=== PATIENT | female | born 1985 | race Hispanic/Latino ===

== ENCOUNTER 2019-09-18 22:14 | Emergency (ER) | payer SELFPAY ==
[~2019-09-18] VITALS: Ht 157.5 cm; Wt 86.2 kg
--- OUTSIDE RECORDS SUMMARY | 2019-09-18 22:16 | XMS REPORT ---
Author Author Admin, Delong Organization Unknown Address Unknown Phone Unavailable PROBLEMS Condition Status Date Provider Notes Attention deficit disorder active Virgilio Perkins PAT positive active Virgilio Perkins Vaccination Against Influenza completed - Virgilio Perkins Pre-diabetes active Destinee Cano Hyperlipidemia active Destinee Cano Thrombocytosis completed - Destinee Cano Std screening active Last Patten in the family completed - Destinee Cano BMI 31.0-31.9 active Destinee Cano Obesity active Destinee Cano Folliculitis completed - Destinee Cano Hypothyroidism active Destinee Cano Goiter active Destinee Cano Well woman active Destinee Cano ENCOUNTERS Date Type Provider Location Encounter Diagnosis - Ambulatory Encounter Roxana Decker [facility] K - Ambulatory Encounter Ancelmo Beatty [facility] UNK - Ambulatory Encounter Ronda Franco [facility] UNK - Ambulatory Encounter iGsele Camacho [facility] UNK - Ambulatory Encounter Virgilio Perkins [facility] UNK - Ambulatory Encounter Virgilio Perkins [facility] UNK - Ambulatory Encounter [facility]ilio [facility] - Ambulatory Encounter Virgilio Perkins [facility] UNK - Ambulatory Encounter Virgilio Boo [facility] Attention deficit disorder - Ambulatory Encounter Virgilio Perkins LinkLogtina [facility] UNK - Ambulatory Encounter Virgilio BirdLogtina [facility] UNK - Ambulatory Encounter Madisoneyad Doug [facility] UNK - Ambulatory Encounter Virgilio Perkins [facility] UNK - Ambulatory Encounter Virgilio Velazco [facility] Vaccination Against InfluenzaANA positive - Ambulatory Encounter Last Sandor Last Sandor Adwoa [facility] UNK - Ambulatory Encounter Last Sandor Last [facility] UNK - Ambulatory Encounter Last Sandor Last Sandor [facility] UNK - Ambulatory Encounter Last Sandor Last Sandor [facility] UNK - Ambulatory Encounter Last Sandor Last Sandor [facility] UNK - Ambulatory Encounter Last Sandor Last Sandor [facility] UNK - Ambulatory Encounter Last Sandor Last Sandor [facility] UNK - Ambulatory Encounter Yoseph Llamas [facility] UNK - Ambulatory Encounter Last Sandor Last [facility]or [facility] UNK - Ambulatory Encounter Last East [facility] Std screening - Ambulatory Encounter [facility]nie [facility] UNK - Ambulatory Encounter Vonnie Perrin [facility] UNK - Ambulatory Encounter [facility] Encounter [facility] Std screeningThrombocytosis - Ambulatory Encounter Destinee Cano [facility] Vonnie [facility]err[facility] UNK - Ambulatory Encounter Dest[facility] UNK - Ambulatory Encounter Destinee [facility] UNK - Ambulatory Encounter Destinee Sarabia [facility] FolliculitisDeath in the family - Ambulatory Encounter Destinee [facility] UNK - Ambulatory Encounter Vonnie Ware [facility] Contact Center UNK - Ambulatory Encounter Fax Status [facility] UNK - Ambulatory Encounter F[facility] - [facility] Encounter Vonniewally Douglaso [facility] UNK - Ambulatory Encounter Destinee Cano [facility] UNK - Ambulatory Encounter Dest[facility] UN[facility] - [facility] Std screeningThrombocytosisHyperlipidemiaPre-diabetes - Ambulatory Encounter Destinee Jerome Cano [facility] UNK - [facility]err[facility] UNK - [facility]K - Ambulatory Encounter Destinee BirdLogic [facility] UNK - Ambulatory Encounter Destinee Cano [facility] UNK - Ambulatory Encounter Destinee Cano [facility] UNK - Ambulatory Encounter Destinee Jerome Rollinsah Jerome [facility] UNK - Ambulatory Encounter Rachele Jono [facility] GIRL FRIDAY UNK - Ambulatory Encounter Destinee Acevedo [facility] Well womanGoiterHypothyroidismFolliculitisObesityBMI 31.0-31.9Death in the family VITAL SIGNS Date Observation Value Provider oxygen saturation, oximetry 98 % [facility] " blood pressure, diastolic 80 mm[Hg] Deborath Camacho " blood pressure, systolic 121 mm[Hg] Debora Camacho " respiratory rate E&M 17 /min Debora Camacho " pulse rate E&M 52 /min Deborath Camacho " temperature E&M 97.6 [degF] Deborath Camacho " weight E&M 208.50 lbs. Deborath Camacho " weight in kilograms E&M 94.77 [facility] " method used to obtain blood pressure automatic [facility] Position 01 sitting Debaugusta Camacho " blood pressure, site #1 left arm Deborath Camacho " temperature site oral Debora Camacho " height E&M 64 [in_i] Deborath Camacho " height in centimeters E&M 162.56 cm [facility] oxygen [facility], oximetry 97 % [facility] " blood pressure, diastolic 86 mm[Hg] [facility] " blood pressure, systolic 124 mm[Hg] [facility] " respiratory rate E&M 18 /min [facility] " pulse rate E&M 73 /min [facility] " temperature E&M 98.0 [degF] [facility] " weight E&M 200 lbs. [facility] " weight in kilograms E&M 90.91 kg [facility] " method used to obtain blood pressure automatic [facility] " Blood Pressure Position 01 sitting [facility] " blood pressure, site #1 left arm [facility] " temperature site oral [facility] " height E&M 64 [in_i] [facility] " height in centimeters E&M 162.56 cm [facility] oxygen saturation, oximetry 96 % [place] " blood pressure, diastolic 78 mm[Hg] [place] " blood pressure, systolic 114 mm[Hg] [place] " pulse rate E&M 56 /min [place] " temperature E&M 98.6 [degF] [place] " weight E&M 205.80 lbs. [place] " weight in kilograms E&M 93.55 kg [place] " method used to obtain blood pressure automatic [place] " Blood Pressure Position 01 sitting [place] " blood pressure, site #1 left arm [place] " temperature site oral [place] " height E&M 64 [in_i] [place] " height in centimeters E&M 162.56 cm [place] oxygen saturation, oximetry 99 % Mckenzie Azul " pulse rate E&M 49 /min Mckenzie Azul " blood pressure, diastolic 73 mm[Hg] Mckenzie Azul " blood pressure, systolic 109 mm[Hg] Mckenzie Azul " temperature E&M 97.6 [degF] Mckenzie Azul " weight E&M 179.50 lbs. Mckenzie Azul " weight in kilograms E&M 81.59 kg Mckenzie Azul " method used to obtain blood pressure automatic Mckenzie Azul " Blood Pressure Position 01 sitting Mckenzie Azul " blood pressure, site #1 left arm Mckenzie Azul " temperature site tympanic Mckenzie Azul " height E&M 64 [in_i] Mckenzie Azul " height in centimeters E&M 162.56 cm Mckenzie Azul oxygen saturation, oximetry 98 % Kathy Sarabia " pulse rate E&M 56 /min Kathy Sarabia " blood pressure, diastolic 83 mm[Hg] Kathy Sarabia " blood pressure, systolic 139 mm[Hg] Kathy Sarabia " temperature E&M 97.5 [degF] Kathy Sarabia " height E&M 64 [in_i] Kathy Sarabia " height in centimeters E&M 162.56 cm Kathy Sarabia " weight E&M 181 lbs. Kathy Sarabia " weight in kilograms E&M 82.27 kg Kathy Sarabia " method used to obtain blood pressure automatic Mckenzie Azul " Blood Pressure Position 01 sitting Mckenzie Azul " blood pressure, site #1 left arm Mckenzie Azul " temperature site tympanic [facility]ul ALLERGIES Allergy Name Onset Date Reaction Criticality Status DENADRYL rash High Criticality active REASON FOR REFERRAL Start Date - End Date Service - Ultrasound RESULTS Date Observation Value Provider Reference Range Interpretation Location thyroid stimulating hormone, serum 151.400 u[iU]/mL [facility] 0.450-4.500 High Neisseria gonorrhoeae, throat culture Negative [facility] Negative Neisseria gonorrhoeae DNA probe Negative [facility] Negative " chlamydia DNA probe Negative [facility] Negative HIV-CMIA (Chemiluminescent Microparticle Immuno Assay) Non Reactive [facility] Non Reactive " rapid plasma reagin antibody, serum Non Reactive [facility] Non Reactive thyroid stimulating hormone, serum 100.600 u[iU]/mL [facility] 0.450-4.500 High " hemoglobin A1C, blood, as % of total hemoglobin 6.0 % [facility] 4.8-5.6 High " Neisseria gonorrhoeae DNA probe Negative [facility] Negative " chlamydia DNA probe Negative [facility] Negative " LDL cholesterol, serum 165 mg/dL [facility] 0-99 High " very low density lipoproteins 36 mg/dL [facility] 5-40 " HDL cholesterol, serum 45 mg/dL [facility] >39 " triglyceride, serum, fasting 178 mg/dL [facility] 0-149 High " cholesterol, serum 246 mg/dL [facility] 100-199 High " immature granulocytes, percentage of total cells, blood 0 % [facility] " basophil count, absolute 0.0 x10E3/uL [facility] 0.0-0.2 " Eosinophil Absolute Count 0.1 X10E3/UL [facility] 0.0-0.4 " monocyte count, blood, automated 0.7 X10E3/UL [facility] 0.1-0.9 " lymphocyte count, blood, automated 1.7 X10E3/UL [facility] 0.7-3.1 " Absolute Neutrophils 7.5 X10E3/UL [facility] 1.4-7.0 High " basophils as percent of blood leukocytes 0 % [facility] " eosinophils as percent of blood leukocytes 1 % [facility] " monocytes as percent of blood leukocytes 7 % [facility] " lymphocytes as percent of blood leukocytes 17 % [facility] " neutrophils as percent of blood leukocytes 75 % [facility] " platelet count 368 X10E3/UL [facility] 150-379 " red blood cell distribution width 14.6 % [facility] 12.3-15.4 " mean corpuscular hemoglobin concentration, RBC 33.3 G/DL [facility] 31.5-35.7 " mean corpuscular hemoglobin, RBC 28.3 pg [facility] 26.6-33.0 " mean corpuscular volume, RBC 85 fL [facility] 79-97 " hematocrit, blood 41.4 % [facility] 34.0-46.6 " hemoglobin, blood 13.8 g/dL [facility] 11.1-15.9 " erythrocyte (RBC) count 4.87 X10E6/UL [facility] 3.77-5.28 " leukocyte count, blood 10.0 X10E3/UL [facility] 3.4-10.8 hepatitis B surface antigen Negative [facility] Negative " rapid plasma reagin antibody, serum Non Reactive [facility] Non Reactive " hepatitis C antibody, serum <0.1 [facility] 0.0-0.9 " HIV-CMIA (Chemiluminescent Microparticle Immuno Assay) Non Reactive [facility] Non Reactive " rubella antibody, serum, IgG 3.90 [facility] Immune >0.99 " thyroid stimulating hormone, serum 11.580 u[iU]/mL [facility] 0.450-4.500 High " hemoglobin A1C, blood, as % of total hemoglobin 6.3 % [facility] 4.8-5.6 High " Neisseria gonorrhoeae DNA probe Negative [facility] Negative " chlamydia DNA probe Equivocal [facility] Negative " LDL cholesterol, serum 166 mg/dL [facility] 0-99 High " very low density lipoproteins 56 mg/dL [facility] 5-40 High " HDL cholesterol, serum 43 mg/dL [facility] >39 " triglyceride, serum, fasting 282 mg/dL [facility] 0-149 High " cholesterol, serum 265 mg/dL [facility] 100-199 High " alanine aminotransferase (SGPT), serum 12 1/L [facility] 0-32 " aspartate aminotransferase (SGOT), serum 17 1/L [facility] 0-40 " alkaline phosphatase, serum 64 1/L [facility] 39-117 " bilirubin, serum, total 0.5 mg/dL [facility] 0.0-1.2 " albumin/globulin ratio, serum 1.3 [facility] 1.1-2.5 " globulin, serum 3.4 [facility] 1.5-4.5 " albumin, serum 4.5 g/dL [facility] 3.5-5.5 " protein, total, serum 7.9 g/dL [facility] 6.0-8.5 " calcium, serum 9.6 mg/dL [facility] 8.7-10.2 " carbon dioxide, venous blood 23 mmol/L [facility] 18-29 " chloride, serum 99 mmol/L [facility] 97-106 " potassium, serum 4.6 mmol/L [facility] 3.5-5.2 " sodium, serum 139 mmol/L [facility] 136-144 " urea nitrogen/creatinine ratio, serum 16 [facility] 8-20 " eGFR if 141 mL/min/((173/100).m2) [facility] >59 " Estimated Glomerular Filtration Rate (calc) 122 mL/min/((173/100).m2) [facility] >59 " creatinine, serum 0.63 mg/dL [facility] 0.57-1.00 " urea nitrogen, blood 10 mg/dL [facility] 6-20 " blood glucose, random 107 mg/dL [facility] 65-99 High " immature granulocytes, percentage of total cells, blood 0 % [facility] " basophil count, absolute 0.0 x10E3/uL [facility] 0.0-0.2 " Eosinophil Absolute Count 0.1 X10E3/UL [facility] 0.0-0.4 " monocyte count, blood, automated 0.5 X10E3/UL [facility] 0.1-0.9 " lymphocyte count, blood, automated 1.3 X10E3/UL [facility] 0.7-3.1 " Absolute Neutrophils 6.7 X10E3/UL [facility] 1.4-7.0 " basophils as percent of blood leukocytes 0 % [facility] " eosinophils as percent of blood leukocytes 1 % [facility] " monocytes as percent of blood leukocytes 6 % [facility] " lymphocytes as percent of blood leukocytes 16 % [facility] " neutrophils as percent of blood leukocytes 77 % [facility] " platelet count 391 X10E3/UL [facility] 150-379 High " red blood cell distribution width 14.7 % [facility] 12.3-15.4 " mean corpuscular hemoglobin concentration, RBC 32.8 G/DL [facility] 31.5-35.7 " mean corpuscular hemoglobin, RBC 27.6 pg [facility] 26.6-33.0 " mean corpuscular volume, RBC 84 fL [facility] 79-97 " hematocrit, blood 42.4 % [facility] 34.0-46.6 " hemoglobin, blood 13.9 g/dL [facility] 11.1-15.9 " erythrocyte (RBC) count 5.04 X10E6/UL [facility] 3.77-5.28 " leukocyte count, blood 8.6 X10E3/UL [facility] 3.4-10.8 HISTORY OF IMMUNIZATIONS No Information Available HISTORY OF MEDICATION USE Medication Instructions Dates Provider Comments LEVOTHYROXINE SODIUM 112 MCG ORAL TABLET One tab by mouth daily Destinee Cano SOCIAL HISTORY Date Observation Value Provider time of call 08/22/2019 3:52 PM Mary Decker Exercise Program Referral T Gisele Camacho " Weight Management Counseling Provided Margaret Camacho " Nutrition intervention Margaret Camacho " drug use, illicit Never [facility] " alcohol use Currently [facility] " social history E&M Single. Single. 3 children. Partner in 01/2016 2 suicide. Not homeless. Employed. Sex at : Female. Gender identity: Female. Gender of partner(s): Female. Sexually Active: Yes. Not currently sexually active. [facility] " social history reviewed E&M reviewed today [facility] " is there any chance that you could be ? No [facility] " sexual orientation Heterosexual [facility] " passive cigarette smoke exposure No [facility] " smoking status never smoker [facility] " Exercise Program Referral T [facility] " Weight Management Counseling Provided T [facility] " Nutrition intervention T [facility] " drug use, illicit Never [facility] " alcohol use Currently [facility] " social history E&M Single. Single. 3 children. Partner in 01/2016 2 suicide. Not homeless. Employed. Sex at : Female. Gender identity: Female. Gender of partner(s): Female. Sexually Active: Yes. [facility] currently [facility] active. [facility] reviewed E&M reviewed today [facility] " is there any chance that you could be ? No [facility] " sexual orientation Heterosexual [facility] " passive cigarette smoke exposure No [facility] " smoking status never smoker [facility] time of call 04/17/2018 4:30 PM Gretchen Brush " sexual orientation Heterosexual [facility] [place] " is there any chance that you could be ? No [place] " passive cigarette smoke exposure No [place] " smoking status never smoker [facility] " Exercise Program Referral T [place] " Weight Management Counseling Provided T [place] " Nutrition intervention Margaret East social history E&M Single. Single. 3 children. Partner in 01/2016 22 suicide. Not homeless. Employed. Sex at : Female. Gender identity: Female. Gender of partner(s): Female. Sexually Active: Yes. Not currently sexually active. Destinee Cano " social history reviewed E&M reviewed today Destinee Cano " Exercise Program Referral T Destinee Cano " Weight Management Counseling Provided T Destinee Cano " Nutrition intervention T Destinee Cano " drug use, illicit Never Mckenzie Azul " alcohol use Currently Mckenzie Azul " is there any chance that you could be ? No Mckenzie Azul " passive cigarette smoke exposure No Mckenzie Azul " smoking status never smoker Mckenzie Azul time of call 09/01/2016 7:58 AM Rhina Ware social history E&M Single. Single. 3 children. Partner in 01/2016 2/2 suicide. Not homeless. Employed. Sex at : Female. Gender identity: Female. Gender of partner(s): Female. Sexually Active: Yes. Not currently sexually active. Destinee Cano " family support Single. 3 children. Partner in 01/2016 2/2 suicide. Destinee Cano " social history - sexual practice Not currently sexually active. Destinee Cano " social history reviewed E&M reviewed today Destinee Cano alcohol use, frequency holidays/special occasions only Kathy Sarabia " sex at Female Kathy Sarabia " patient considered to be homeless No Kathy Sarabia " Exercise Program Referral T Kathy Sarabia " Weight Management Counseling Provided T Kathy Sarabia " Nutrition intervention T Kathy Sarabia " drug use, illicit Never Mckenzie Azul " alcohol use Currently Kathy Sarabia " is there any chance that you could be ? No Mckenzie Azul " passive cigarette smoke exposure No Mckenzie Azul " smoking status never smoker Mckenzie Azul FUNCTIONAL STATUS No Information Available MENTAL STATUS Date Observation Value Provider assessment of judgment and insight E&M intact Virgilio Perkins " mental status examination: orientation E&M oriented to time, place, and person Virgilio Perkins " assessment of mood and affect E&M no depression, anxiety, or agitation Virgilio Perkins " Generalized Anxiety Disorder Questionnaire - Question 2 0 Madison Doug " Generalized Anxiety Disorder Questionnaire - Question 1 0 Gisele Camacho assessment of judgment and insight E&M intact Virgilio Perkins " mental status examination: orientation E&M oriented to time, place, and person Virgilio Perkins " assessment of mood and affect E&M no depression, anxiety, or agitation Virgilio Perkins " Generalized Anxiety Disorder Questionnaire - Question 2 0 Gsiele Camacho " Generalized Anxiety Disorder Questionnaire - Question 1 0 Gisele Camacho Generalized Anxiety Disorder Questionnaire - Question 2 0 [place] " Generalized Anxiety Disorder Questionnaire - Question 1 0 [place] assessment of judgment and insight E&M intact Destinee Cano " mental status examination: orientation E&M oriented to time, place, and person Destinee Cano " assessment of mood and affect E&M no depression, anxiety, or agitation Destinee Cano " Generalized Anxiety Disorder Questionnaire - Question 2 0 Mckenzie Azul " Generalized Anxiety Disorder Questionnaire - Question 1 0 Mckenzie Azul assessment of judgment and insight E&M intact Destinee Cano " assessment of mood and affect E&M no depression, anxiety, or agitation Destinee Cano " Generalized Anxiety Disorder Questionnaire - Question 2 0 Mckenzie Azul " Generalized Anxiety Disorder Questionnaire - Question 1 0 Mckenzie Azul MEDICAL EQUIPMENT No Information Available FAMILY HISTORY No Information Available INSURANCE PROVIDERS Payer name Policy type / Coverage type Covered libertarian ID Sliding Fee - Cat 1 [employer] insurance Enjoi [id number] PALMER [employer] insurance Enjoi [id number] ADVANCE DIRECTIVES No Information Available TREATMENT PLAN Date Name TSH TSH RPR, Rfx Qn RPR/Confirm TP Ct/GC YADIRA, Pharyngeal HIV 1/2 ANTIGEN/ANTIBODY, FOURTH GENERATION W/RFL Ct, Ng, Trich vag by YADIRA (APTIMA) Gc/Ct/Trich TSH Hemoglobin A1c Lipid Panel CBC With Differential/Platelet Comp. Metabolic Panel (14) Hemoglobin A1c TSH RPR Rubella Antibodies, IgG Lipid Panel HIV 1/2 ANTIGEN/ANTIBODY, FOURTH GENERATION W/RFL HCV Antibody HBsAg Screen Chlamydia/GC Amplification CBC With Differential/Platelet - - Est Patient Exp Problem - 01825 Behavioral Health - Psychological Testing Est Patient Exp Problem - 58634 INFLUENZA VACCINE QUADRIVALENT 3 YRS PLUS IM Admin of Vaccine - Injection - 1 Ofc Vst, Est Level II Est Patient Detailed - 20341 New Patient Well Exam (18 - 39 Yrs) - 79119 Urinalysis - Dip only - In House Urinalysis - - In House Handling of specimen for transfer Venipuncture TDAP INFLUENZA VACCINE QUADRIVALENT 3 YRS PLUS IM HISTORY OF PROCEDURES Procedure Date Procedure Name Provider Procedure Notes Status Urinalysis - Dip only - In House Destinee Cano completed Urinalysis - - In House Destinee Cano completed Venipuncture Destinee Cano completed GOALS No Information Available HEALTH CONCERNS No Information Available
--- OUTSIDE RECORDS SUMMARY | 2019-09-18 22:16 | XMS REPORT ---
Author Author Admin, [place] Organization [facility] Address [address] [facility] [address] [place] [address] Phone Allergies, Adverse Reactions, Alerts Allergy Name Reaction Description Start Date Severity Status Provider AGUILA rash Critical Active Destinee Cano MD Conditions or Problems Problem Name Problem Code Onset Date Status Entry Date Provider Comment Standard Description Annotate Attention deficit disorder 314.00 Active Virgilio Perkins MD Attention deficit disorder of childhood without mention of hyperactivity PAT positive 790.99 Active Virgilio Perkins MD Other nonspecific findings on examination of blood Vaccination Against Influenza V04.81 Active Virgilio Perkins MD Need for prophylactic vaccination and inoculation against influenza Hyperlipidemia 272.4 Active Destinee Cano MD Other and unspecified hyperlipidemia Pre-diabetes 790.29 Active Destinee Cano MD Other abnormal glucose Std screening V74.5 Active Last Patten MD Screening examination for venereal disease BMI 31.0-31.9 Active Destinee Cano MD Body Mass Index 31.0-31.9, adult Goiter 240.9 Active Destinee Cano MD Goiter, unspecified Hypothyroidism 244.9 Active Destinee Cano MD Unspecified hypothyroidism Obesity Active Destinee Cano MD Obesity, unspecified Well woman V72.31 Active Destinee Cano MD Routine gynecological examination Thrombocytosis ICD-238.71 Inactive Destinee Cano MD in the family ICD-V62.81 Inactive Destinee Cano MD Folliculitis ICD-704.8 Inactive Destinee Cano MD Std screening V74.5 Resolved Destinee Cano MD Screening examination for venereal disease Thrombocytosis 238.71 Resolved Destinee Cano MD Essential thrombocythemia in the family V62.81 Resolved Desitnee Cano MD Interpersonal problems, not elsewhere classified Folliculitis 704.8 Resolved Destinee Cano MD Other specified diseases of hair and hair follicles Medication List Medication Instructions Start Date Stop Date Generic Name NDC Status Provider Patient Instruction LEVOTHYROXINE SODIUM 112 MCG ORAL TABLET One tab by mouth daily LEVOTHYROXINE SODIUM 69835021803 Active Virgilio Perkins MD Active Immunizations Vaccine Administration Date Value Standard Description influenza immunization (Flu Vax) has been administered given influenza virus vaccine, unspecified formulation influenza immunization (Flu Vax) has been administered given influenza virus vaccine, unspecified formulation Tetanus toxoid, reduced diphtheria toxoid and acellular Pertussis vaccine, absorbed (TdaP) given given tetanus toxoid, reduced diphtheria toxoid, and acellular pertussis vaccine, adsorbed Vital Signs Date Name Value Unit Range Description blood pressure, diastolic 80 mm[Hg] BP ritchie blood pressure, systolic 121 mm[Hg] BP sys height E&M 64 [in_us] Bdy height pulse rate E&M 52 /min Heart rate respiratory rate E&M 17 /min Resp rate temperature E&M 97.6 [degF] Body temperature weight E&M 208.50 [lb_av] Weight Measured blood pressure, diastolic 86 mm[Hg] BP ritchie blood pressure, systolic 124 mm[Hg] BP sys height E&M 64 [in_us] Bdy height pulse rate E&M 73 /min Heart rate respiratory rate E&M 18 /min Resp rate temperature E&M 98.0 [degF] Body temperature weight E&M 200 [lb_av] Weight Measured blood pressure, diastolic 78 mm[Hg] BP ritchie blood pressure, systolic 114 mm[Hg] BP sys height E&M 64 [in_us] Bdy height pulse rate E&M 56 /min Heart rate temperature E&M 98.6 [degF] Body temperature weight E&M 205.80 [lb_av] Weight Measured Diagnostic Results Date Name Value Unit Range Description Lab Report: TSH - Chemistry thyroid stimulating hormone, serum 151.400 u[iU]/mL 0.450-4.500 Lab Report: CBC With Differential/Platelet, Lipid Panel, Ct, Ng, Trich v ... - Chemistry very low density lipoproteins 36 mg/dL 5-40 Lab Report: CBC With Differential/Platelet, Comp. Metabolic Panel (14), ... - Chemistry hepatitis B surface antigen Negative Negative chloride, serum 99 mmol/L 97-106 urea nitrogen, blood 10 mg/dL 6-20 Lab Report: CBC With Differential/Platelet, Lipid Panel, Ct, Ng, Trich v ... - Hematology mean corpuscular hemoglobin concentration, RBC 33.3 G/DL % 31.5-35.7 erythrocyte (RBC) count 4.87 X10E6/UL 10*6/mm3 3.77-5.28 Lab Report: CBC With Differential/Platelet, Comp. Metabolic Panel (14), ... - Serology hepatitis C antibody, serum <0.1 0.0-0.9 Lab Report: CBC With Differential/Platelet, Lipid Panel, Ct, Ng, Trich v ... - Chemistry Absolute Neutrophils 7.5 X10E3/UL 10*3/uL 1.4-7.0 LDL cholesterol, serum 165 mg/dL 0-99 Lab Report: CBC With Differential/Platelet, Comp. Metabolic Panel (14), ... - Chemistry urea nitrogen/creatinine ratio, serum 16 8-20 Lab Report: CBC With Differential/Platelet, Lipid Panel, Ct, Ng, Trich v ... - Hematology mean corpuscular volume, RBC 85 fL 79-97 Lab Report: CBC With Differential/Platelet, Lipid Panel, Ct, Ng, Trich v ... - Chemistry HDL cholesterol, serum 45 mg/dL >39 Lab Report: CBC With Differential/Platelet, Lipid Panel, Ct, Ng, Trich v ... - Hematology monocytes as percent of blood leukocytes 7 % Lab Report: CBC With Differential/Platelet, Comp. Metabolic Panel (14), ... - Chemistry creatinine, serum 0.63 mg/dL 0.57-1.00 albumin/globulin ratio, serum 1.3 1.1-2.5 Lab Report: CBC With Differential/Platelet, Lipid Panel, Ct, Ng, Trich v ... - Chemistry cholesterol, serum 246 mg/dL 100-199 Lab Report: CBC With Differential/Platelet, Comp. Metabolic Panel (14), ... - Chemistry bilirubin, serum, total 0.5 mg/dL 0.0-1.2 Lab Report: CBC With Differential/Platelet, Lipid Panel, Ct, Ng, Trich v ... - Hematology Eosinophil Absolute Count 0.1 X10E3/UL 10*3/uL 0.0-0.4 Lab Report: Ct, Ng, Trich vag by YADIRA - Lab chlamydia DNA probe Negative Negative Lab Report: CBC With Differential/Platelet, Comp. Metabolic Panel (14), ... - Chemistry aspartate aminotransferase (SGOT), serum 17 U/L 0-40 Lab Report: CBC With Differential/Platelet, Lipid Panel, Ct, Ng, Trich v ... - Hematology red blood cell distribution width 14.6 % 12.3-15.4 leukocyte count, blood 10.0 X10E3/UL 10*3/mm3 3.4-10.8 Lab Report: CBC With Differential/Platelet, Comp. Metabolic Panel (14), ... - Chemistry potassium, serum 4.6 mmol/L 3.5-5.2 Lab Report: Ct/GC YADIRA, Pharyngeal - Microbiology Neisseria gonorrhoeae, throat culture Negative Negative Lab Report: CBC With Differential/Platelet, Lipid Panel, Ct, Ng, Trich v ... - Chemistry immature granulocytes, percentage of total cells, blood 0 % Lab Report: CBC With Differential/Platelet, Comp. Metabolic Panel (14), ... - Chemistry albumin, serum 4.5 g/dL 3.5-5.5 Lab Report: CBC With Differential/Platelet, Lipid Panel, Ct, Ng, Trich v ... - Hematology lymphocyte count, blood, automated 1.7 X10E3/UL 10*3/mm3 0.7-3.1 Lab Report: Ct, Ng, Trich vag by YADIRA - Microbiology Neisseria gonorrhoeae DNA probe Negative Negative Lab Report: CBC With Differential/Platelet, Lipid Panel, Ct, Ng, Trich v ... - Hematology hematocrit, blood 41.4 % 34.0-46.6 Lab Report: CBC With Differential/Platelet, Comp. Metabolic Panel (14), ... - Chemistry sodium, serum 139 mmol/L 136-144 Lab Report: CBC With Differential/Platelet, Lipid Panel, Ct, Ng, Trich v ... - Hematology neutrophils as percent of blood leukocytes 75 % basophils as percent of blood leukocytes 0 % Lab Report: RPR, Rfx Qn RPR/Confirm TP, Panel [id number] - Serology rapid plasma reagin antibody, serum Non Reactive Non Reactive Lab Report: CBC With Differential/Platelet, Comp. Metabolic Panel (14), ... - Serology rubella antibody, serum, IgG 3.90 Immune >0.99 Lab Report: CBC With Differential/Platelet, Comp. Metabolic Panel (14), ... - Chemistry carbon dioxide, venous blood 23 mmol/L 18-29 Lab Report: CBC With Differential/Platelet, Lipid Panel, Ct, Ng, Trich v ... - Chemistry triglyceride, serum, fasting 178 mg/dL 0-149 Lab Report: CBC With Differential/Platelet, Comp. Metabolic Panel (14), ... - Chemistry calcium, serum 9.6 mg/dL 8.7-10.2 alanine aminotransferase (SGPT), serum 12 U/L 0-32 Lab Report: CBC With Differential/Platelet, Lipid Panel, Ct, Ng, Trich v ... - Hematology mean corpuscular hemoglobin, RBC 28.3 pg 26.6-33.0 Lab Report: CBC With Differential/Platelet, Comp. Metabolic Panel (14), ... - Chemistry protein, total, serum 7.9 g/dL 6.0-8.5 alkaline phosphatase, serum 64 U/L 39-117 Lab Report: CBC With Differential/Platelet, Lipid Panel, Ct, Ng, Trich v ... - Hematology hemoglobin, blood 13.8 g/dL 11.1-15.9 lymphocytes as percent of blood leukocytes 17 % Lab Report: CBC With Differential/Platelet, Lipid Panel, Ct, Ng, Trich v ... - Chemistry hemoglobin A1C, blood, as % of total hemoglobin 6.0 % 4.8-5.6 Lab Report: CBC With Differential/Platelet, Comp. Metabolic Panel (14), ... - Genetics/fertility eGFR if 141 mL/min/1.73m2 >59 Lab Report: CBC With Differential/Platelet, Lipid Panel, Ct, Ng, Trich v ... - Hematology basophil count, absolute 0.0 x10E3/uL 0.0-0.2 Lab Report: CBC With Differential/Platelet, Comp. Metabolic Panel (14), ... - Chemistry globulin, serum 3.4 1.5-4.5 Estimated Glomerular Filtration Rate (calc) 122 mL/min/1.73m2 >59 Lab Report: CBC With Differential/Platelet, Lipid Panel, Ct, Ng, Trich v ... - Hematology eosinophils as percent of blood leukocytes 1 % Lab Report: CBC With Differential/Platelet, Comp. Metabolic Panel (14), ... - Chemistry blood glucose, random 107 mg/dL 65-99 Lab Report: CBC With Differential/Platelet, Lipid Panel, Ct, Ng, Trich v ... - Hematology monocyte count, blood, automated 0.7 X10E3/UL 10*3/uL 0.1-0.9 platelet count 368 X10E3/UL 10*3/mm3 150-379 Encounters Date Encounter Provider Code Facility 10:40:19 [facility]IDE [facility]STEWARDESS Est Patient Exp Problem - 44183 Virgilio Perkins MD CPT-94033 [facility] 16:52:09 [facility] Est Patient Exp Problem - 44034 Virgilio Perkins MD CPT-51286 [facility] 10:03:24 CDT Ofc Vst, Est Level II Last Patten MD CPT-42313 [facility] 11:08:13 CDT Est Patient Detailed - 30717 Destinee Cano MD CPT-10776 [facility] Procedures Code Procedure Name Date Entry Date Standard Description CPT-02994 INFLUENZA VACCINE QUADRIVALENT 3 YRS PLUS IM 16:47:48 [facility] CPT-56436 Admin of Vaccine - Injection - 1 16:47:48 [facility] CPT-37057 TDAP 09:42:29 CDT CPT-02018 INFLUENZA VACCINE QUADRIVALENT 3 YRS PLUS IM 09:42:29 CDT CPT-07630 New Patient Well Exam (18 - 39 Yrs) - 32088 09:42:15 CDT CPT-78187 Urinalysis - Dip only - In House 09:42:15 CDT CPT-52252 Urinalysis - - In House 09:42:15 CDT CPT-62435 Handling of specimen for transfer 09:42:14 CDT CPT-89634 Venipuncture 09:42:11 CDT
--- OUTSIDE RECORDS SUMMARY | 2019-09-18 22:16 | XMS REPORT ---
[facility] Address Unknown Phone Unavailable Care Team Providers Care Neighborhood Aide Name Role Phone Unavailable Unavailable Payers Payer Name Policy Type Policy Number Effective Date Expiration Date Problems This patient has no known problems. Allergies, Adverse Reactions, Alerts Allergy Name Allergy Type Status Severity Reaction(s) Onset Date Inactive Date Treating Clinician Comments diphenhydramine DA Active 2019-07-27 00:00:00 diphenhydramine DA Active 2019-06-18 00:00:00 diphenhydramine DA Active 2018-11-08 00:00:00 diphenhydramine DA Active 2014-01-08 00:00:00 Medications This patient has no known medications. Results Test Description Test Time Test Comments Text Results Atomic Results Result Comments BASIC METABOLIC PANEL 2019-07-27 22:53:00 SODIUM (test code=NA) 138 mmol/L 136-145 POTASSIUM (test code=K) 3.7 mmol/L 3.5-5.1 CHLORIDE (test code=CL) 104.0 mmol/L 98-107 CARBON DIOXIDE (test code=CO2) 29.0 mmol/L 21-32 ANION GAP (test code=GAP) 8.7 10-20 GLUCOSE (test code=GLU) 101 mg/dL 74-106 BLOOD UREA NITROGEN (test code=BUN) 8 mg/dL 7-18 GLOMERULAR FILTRATION RATE (test code=GFR) > 60 mL/min >=60 Estimated GFR by using Modified MDRD formula.Chronic kidney disease is defined as either kidney damageor GFR <60 mL/min/1.73 m2 for >3 months. CREATININE (test code=CREAT) 0.70 mg/dL 0.55-1.02 Note change in reference range due to change in reagent. BUN/CREATININE RATIO (test code=BUN/CREA) 11.4 10-20 CALCIUM (test code=CA) 8.7 mg/dL 8.5-10.1 HEPATIC FUNCTION [id number] 22:53:00* Test Item Value Reference Range Comments TOTAL PROTEIN (test code=PROT) 9.0 gram/dL 6.4-8.2 ALBUMIN (test code=ALB) 3.7 g/dL 3.4-5.0 GLOBULIN (test code=GLOB) 5.3 gram/dL 2.7-4.2 ALBUMIN/GLOBULIN RATIO (test code=A/G) 0.7 0.75-1.50 BILIRUBIN TOTAL (test code=BILT) 0.30 mg/dL 0.0-1.0 BILIRUBIN DIRECT (test code=BILD) 0.10 mg/dL 0.0-0.20 SGOT/AST (test code=AST) 21 IUnit/L 15-37 SGPT/ALT (test code=ALT) 29 IUnit/L 12-78 ALKALINE PHOSPHATASE TOTAL (test code=ALKP) 65 IUnit/L 45-117 Note change in reference range due to change in reagent. [id number] 22:53:00* Test Item Value Reference Range Comments LIPASE (test code=LIP) 73 U/L 73.0-393.0 HCG SERUM [id number] 22:53:00* Test Item Value Reference Range Comments HCG SERUM QUAL (test code=HCGQL) NEGATIVE NEGATIVE This HCGQL test is NOT applicable for MALE patients.Check with nurse about probable order error.If Tumor Marker Test needed, nurse should order test "HCGTU"(Test #550.78236) BASIC METABOLIC [id number] 22:50:00* Test Item Value Reference Range Comments SODIUM (test code=NA) 138 mmol/L 136-145 POTASSIUM (test code=K) 3.7 mmol/L 3.5-5.1 CHLORIDE (test code=CL) 104.0 mmol/L 98-107 CARBON DIOXIDE (test code=CO2) 29.0 mmol/L 21-32 ANION GAP (test code=GAP) 8.7 10-20 GLUCOSE (test code=GLU) 101 mg/dL 74-106 BLOOD UREA NITROGEN (test code=BUN) 8 mg/dL 7-18 GLOMERULAR FILTRATION RATE (test code=GFR) > 60 mL/min >=60 Estimated GFR by using Modified MDRD formula.Chronic kidney disease is defined as either kidney damageor GFR <60 mL/min/1.73 m2 for >3 months. CREATININE (test code=CREAT) 0.70 mg/dL 0.55-1.02 Note change in reference range due to change in reagent. BUN/CREATININE RATIO (test code=BUN/CREA) 11.4 10-20 CALCIUM (test code=CA) 8.7 mg/dL 8.5-10.1 HEPATIC FUNCTION [id number] 22:50:00* Test Item Value Reference Range Comments TOTAL PROTEIN (test code=PROT) 9.0 gram/dL 6.4-8.2 ALBUMIN (test code=ALB) 3.7 g/dL 3.4-5.0 GLOBULIN (test code=GLOB) 5.3 gram/dL 2.7-4.2 ALBUMIN/GLOBULIN RATIO (test code=A/G) 0.7 0.75-1.50 BILIRUBIN TOTAL (test code=BILT) 0.30 mg/dL 0.0-1.0 BILIRUBIN DIRECT (test code=BILD) 0.10 mg/dL 0.0-0.20 SGOT/AST (test code=AST) 21 IUnit/L 15-37 SGPT/ALT (test code=ALT) 29 IUnit/L 12-78 ALKALINE PHOSPHATASE TOTAL (test code=ALKP) 65 IUnit/L 45-117 Note change in reference range due to change in reagent. [id number] 22:50:00* Test Item Value Reference Range Comments LIPASE (test code=LIP) 73 U/L 73.0-393.0 HCG SERUM [id number] 22:50:00* Test Item Value Reference Range Comments HCG SERUM QUAL (test code=HCGQL) NEGATIVE BASIC METABOLIC [id number] 22:38:00* Test Item Value Reference Range Comments SODIUM (test code=NA) 138 mmol/L 136-145 POTASSIUM (test code=K) 3.7 mmol/L 3.5-5.1 CHLORIDE (test code=CL) 104.0 mmol/L 98-107 CARBON DIOXIDE (test code=CO2) mmol/L 21-32 ANION GAP (test code=GAP) 10-20 GLUCOSE (test code=GLU) mg/dL 74-106 BLOOD UREA NITROGEN (test code=BUN) mg/dL 7-18 GLOMERULAR FILTRATION RATE (test code=GFR) mL/min >=60 CREATININE (test code=CREAT) mg/dL 0.55-1.02 BUN/CREATININE RATIO (test code=BUN/CREA) 10-20 CALCIUM (test code=CA) mg/dL 8.5-10.1 HEPATIC FUNCTION [id number] 22:38:00* Test Item Value Reference Range Comments TOTAL PROTEIN (test code=PROT) gram/dL 6.4-8.2 ALBUMIN (test code=ALB) g/dL 3.4-5.0 GLOBULIN (test code=GLOB) gram/dL 2.7-4.2 ALBUMIN/GLOBULIN RATIO (test code=A/G) 0.75-1.50 BILIRUBIN TOTAL (test code=BILT) mg/dL 0.0-1.0 BILIRUBIN DIRECT (test code=BILD) mg/dL 0.0-0.20 SGOT/AST (test code=AST) IUnit/L 15-37 SGPT/ALT (test code=ALT) IUnit/L 12-78 ALKALINE PHOSPHATASE TOTAL (test code=ALKP) IUnit/L 45-117 [id number] 22:38:00* Test Item Value Reference Range Comments LIPASE (test code=LIP) U/L 73.0-393.0 HCG SERUM [id number] 22:38:00* Test Item Value Reference Range Comments HCG SERUM QUAL (test code=HCGQL) NEGATIVE CBC W/O [id number] 22:14:00* Test Item Value Reference Range Comments WHITE BLOOD CELL (test code=WBC) 9.7 K/mm3 4.5-12.5 RED BLOOD CELL (test code=RBC) 4.68 mill/mm3 3.7-5.2 HEMOGLOBIN (test code=HGB) 13.1 gram/dL 11.5-15.5 HEMATOCRIT (test code=HCT) 41.4 % 36.0-46.0 MEAN CELL VOLUME (test code=MCV) 88.5 fL 80-98 MEAN CELL HGB (test code=MCH) 28.0 picogram 27.0-33.0 MEAN CELL HGB CONCETRATION (test code=MCHC) 31.6 gram/dL 33.0-36.0 RED CELL DISTRIBUTION WIDTH (test code=RDW) 14.1 % 11.6-16.2 PLATELET COUNT (test code=PLT) 372 K/mm3 150-450 MEAN PLATELET VOLUME (test code=MPV) 10.0 fL 6.7-11.0 CBC W/O [id number] 22:12:00* Test Item Value Reference Range Comments WHITE BLOOD CELL (test code=WBC) K/mm3 4.5-12.5 RED BLOOD CELL (test code=RBC) mill/mm3 3.7-5.2 HEMOGLOBIN (test code=HGB) 13.1 gram/dL 11.5-15.5 HEMATOCRIT (test code=HCT) 41.4 % 36.0-46.0 MEAN CELL VOLUME (test code=MCV) fL 80-98 MEAN CELL HGB (test code=MCH) picogram 27.0-33.0 MEAN CELL HGB CONCETRATION (test code=MCHC) gram/dL 33.0-36.0 RED CELL DISTRIBUTION WIDTH (test code=RDW) % 11.6-16.2 PLATELET COUNT (test code=PLT) K/mm3 150-450 MEAN PLATELET VOLUME (test code=MPV) fL 6.7-11.0 URINALYSIS [id number] 22:04:00* Test Item Value Reference Range Comments UA COLOR (test code=COLU) YELLOW YELLOW UA APPEARANCE (test code=APPU) CLEAR CLEAR UA GLUCOSE DIPSTICK (test code=DGLUU) NEGATIVE mg/dL NEGATIVE UA BILIRUBIN DIPSTICK (test code=BILU) NEGATIVE mg/dL NEGATIVE UA KETONE DIPSTICK (test code=KETU) NEGATIVE mg/dL NEGATIVE UA SPECIFIC GRAVITY (test code=SGU) 1.028 1.001-1.035 UA BLOOD DIPSTICK (test code=EVERARDO) >1.0 mg/dL NEGATIVE UA PH DIPSTICK (test code=FRANK) 6.5 5.0-8.0 UA PROTEIN DIPSTICK (test code=PROU) 10 (Trace) mg/dL NEGATIVE UA UROBILINIOGEN DIPSTICK (test code=URO) 4.0 (2+) mg/dL NEGATIVE UA NITRITE DIPSTICK (test code=YASSINE) NEGATIVE NEGATIVE UA LEUKOCYTE ESTERASE W REFLEX (test code=LEUUR) 25 Aylin/uL (Trace) Aylin/uL NEGATIVE UA WBC (test code=WBCU) 6-10 per HPF 0-5 UA RBC (test code=RBCU) 21-50 #/HPF 0-5 UA EPITHELIAL CELLS (test code=EPIU) FEW per HPF FEW UA BACTERIA (test code=BACU) NONE SEEN #/HPF NONE UA MUCUS (test code=MUCU) FEW #/LPF FEW Urine Source? Clean CatchURINALYSIS [id number] 21:58:00* Test Item Value Reference Range Comments UA COLOR (test code=COLU) YELLOW YELLOW UA APPEARANCE (test code=APPU) CLEAR CLEAR UA GLUCOSE DIPSTICK (test code=DGLUU) NEGATIVE mg/dL NEGATIVE UA BILIRUBIN DIPSTICK (test code=BILU) NEGATIVE mg/dL NEGATIVE UA KETONE DIPSTICK (test code=KETU) NEGATIVE mg/dL NEGATIVE UA SPECIFIC GRAVITY (test code=SGU) 1.028 1.001-1.035 UA BLOOD DIPSTICK (test code=EVERARDO) >1.0 mg/dL NEGATIVE UA PH DIPSTICK (test code=FRANK) 6.5 5.0-8.0 UA PROTEIN DIPSTICK (test code=PROU) 10 (Trace) mg/dL NEGATIVE UA UROBILINIOGEN DIPSTICK (test code=URO) 4.0 (2+) mg/dL NEGATIVE UA NITRITE DIPSTICK (test code=YASSINE) NEGATIVE NEGATIVE UA LEUKOCYTE ESTERASE W REFLEX (test code=LEUUR) 25 Aylin/uL (Trace) Aylin/uL NEGATIVE UA WBC (test code=WBCU) per HPF 0-5 UA RBC (test code=RBCU) per HPF 0-5 UA EPITHELIAL CELLS (test code=EPIU) per HPF Few UA BACTERIA (test code=BACU) per HPF NONE Urine Source? Clean Catch- US ABDOMEN [id number] 20:22:00 Name: LYNDA SIMONS [facility] : 1985 Age/S: 33 [facility] [address] [facility] [id number] Loc: [place] [address] Phys: Broderick Pedraza NP Acct: [id number] Dis Date: Status: REG ER PHONE #: [phone] Exam Date: 07/27/20191953 FAX #: [phone] Reason: Abdominal Pain EXAMS: CPT CODE: [id number] US ABDOMEN LTD [id number] REASON FOR EXAM: Abdominal Pain EXAM ORDER DATE: 07/27/2019 7:16 PM Attending M.D.: Broderick Pedraza NP PROCEDURE: - US ABDOMEN LTD Technique: Grayscale and color Doppler images of the right-upper quadrant of the abdomen. Comparison: Abdominal ultrasound February 24, 2016 FINDINGS: Aorta and IVC: Patent and grossly normal in caliber. Liver: Size: 16.0 cm craniocaudally Parenchyma and contour: Smooth contour. Normal echogenicity. Cysts and/or masses: None. Intrahepatic bile ducts: No intrahepatic biliary ductal dilation Common bile duct: 3.2 mm in diameter. No echo genic filling defects in visualized duct. Gallbladder: Stones/sludge: Intraluminal stones are present. Wall: 1.8 mm in thicknes s. No discontinuity. No polyps. No pericholecystic fluid. No hyperemia . Sonographic Richard's sign: Negative Portal vein: Portal ve in caliber is within normal limits. Portal vein is patent with hepatopeta l flow. Pancreas: Incompletely visualized. However the visualized portions are grossly within normal limits. Right kidney: parenchyma echogenicity: Normal echogenicity size: 11.0 x 4.8 x 5.2 cm stones: none cysts/masses: none PAGE 1 S igned Report (CONTINUED) Name: LYNDA SIMONS [facility] : 1985 Age/S: 33 / F [address] [facility] Unit #: [id number] Loc: [place] [address] Phys: Broderick Pedraza NP Acct: [id number] Dis Date: Status: REG ER PHONE #: [phone] Exam Date: 07/27/20191953 FAX #: [phone] Reason: Abdominal Pain EXAMS: CPT CODE: [id number] US ABDOMEN LTD 33343 <Continued> hydronephrosis: none Ascites/pleural effusions: None IMPRESSION: Cholelithiasis without sonographic findings of acute cholecystitis. Location: [facility] at 2021 Reported and signed by: Montrell Brown MD CC: Broderick Pedraza NP Technologist: Javier Montiel Trnscb Date/Time: 07/27/2019 (2021) Luis [email or web address] Orig Print D/T: S: 07/27/2019 (2024) Probe: PAGE 2 Signed Report URINALYSIS [id number] 17:59:00* Test Item Value Reference Range Comments UA COLOR (test code=COLU) YELLOW YELLOW UA APPEARANCE (test code=APPU) Cloudy CLEAR UA GLUCOSE DIPSTICK (test code=DGLUU) NEGATIVE mg/dL NEGATIVE UA BILIRUBIN DIPSTICK (test code=BILU) NEGATIVE mg/dL NEGATIVE UA KETONE DIPSTICK (test code=KETU) NEGATIVE mg/dL NEGATIVE UA SPECIFIC GRAVITY (test code=SGU) 1.028 1.001-1.035 UA BLOOD DIPSTICK (test code=EVERARDO) Negative mg/dL NEGATIVE UA PH DIPSTICK (test code=FRANK) 6.0 5.0-8.0 UA PROTEIN DIPSTICK (test code=PROU) 20 (Trace) mg/dL NEGATIVE UA UROBILINIOGEN DIPSTICK (test code=URO) Normal mg/dL NEGATIVE UA NITRITE DIPSTICK (test code=YASSINE) NEGATIVE NEGATIVE UA LEUKOCYTE ESTERASE W REFLEX (test code=LEUUR) 500 Aylin/uL (3+) Aylin/uL NEGATIVE UA WBC (test code=WBCU) 21-50 per HPF 0-5 UA RBC (test code=RBCU) 6-10 #/HPF 0-5 UA EPITHELIAL CELLS (test code=EPIU) MANY per HPF FEW UA BACTERIA (test code=BACU) FEW #/HPF NONE UA MUCUS (test code=MUCU) MODERATE #/LPF FEW Urine Source? Clean CatchURINALYSIS [id number] 12:47:00* Test Item Value Reference Range Comments UA COLOR (test code=COLU) YELLOW YELLOW UA APPEARANCE (test code=APPU) Cloudy CLEAR UA GLUCOSE DIPSTICK (test code=DGLUU) NEGATIVE mg/dL NEGATIVE UA BILIRUBIN DIPSTICK (test code=BILU) NEGATIVE mg/dL NEGATIVE UA KETONE DIPSTICK (test code=KETU) NEGATIVE mg/dL NEGATIVE UA SPECIFIC GRAVITY (test code=SGU) 1.028 1.001-1.035 UA BLOOD DIPSTICK (test code=EVERARDO) Negative mg/dL NEGATIVE UA PH DIPSTICK (test code=FRANK) 5.5 5.0-8.0 UA PROTEIN DIPSTICK (test code=PROU) NEGATIVE mg/dL NEGATIVE UA UROBILINIOGEN DIPSTICK (test code=URO) Normal mg/dL NEGATIVE UA NITRITE DIPSTICK (test code=YASSINE) NEGATIVE NEGATIVE UA LEUKOCYTE ESTERASE W REFLEX (test code=LEUUR) 500 Aylin/uL (3+) Aylin/uL NEGATIVE UA WBC (test code=WBCU) 11-20 per HPF 0-5 UA RBC (test code=RBCU) 3-5 #/HPF 0-5 UA EPITHELIAL CELLS (test code=EPIU) MOD per HPF FEW UA BACTERIA (test code=BACU) FEW #/HPF NONE UA MUCUS (test code=MUCU) FEW #/LPF FEW Urine Source? Clean CatchPROCALCITONIN (PCT)2018-11-08 18:39:00* Test Item Value Reference Range Comments PROCALCITONIN (PCT) (test code=PROCAL) < 0.05 ng/ml Concentration Interpretation (ng/mL) <0.51 Sepsis is not likely. Local bacterial infection is possible. (LOW RISK for progression to Sepsis) 0.51 - 2.00 Sepsis is possible, but other conditions are known to elevate PCT as well. (MODERATE RISK for progression to Sepsis) > 2.00 Sepsis is likely, unless other causes are known. (HIGH RISK for progression to Severe Sepsis or Septic Shock) 10.00 High likelihood of Severe Sepsis or Septic or higher Shock. *Increased PCT levels may not always be related to systemic bacterial infection.*Low PCT levels do not automatically exclude the presence of bacterial infection.*All results should be interpreted taking into account the patients history. BASIC METABOLIC [id number] 18:15:00* Test Item Value Reference Range Comments SODIUM (test code=NA) 134 mmol/L 136-145 POTASSIUM (test code=K) 2.9 mmol/L 3.5-5.[address] ALONZO by MARY.JANET 11/08/18 1745Critical results verified and read back by Nurse? Y CHLORIDE (test code=CL) 100.0 mmol/L 98-107 CARBON DIOXIDE (test code=CO2) 25.0 mmol/L 21-32 ANION GAP (test code=GAP) 11.9 10-20 GLUCOSE (test code=GLU) 102 mg/dL 74-106 BLOOD UREA NITROGEN (test code=BUN) 7 mg/dL 7-18 GLOMERULAR FILTRATION RATE (test code=GFR) > 60 mL/min >=60 Estimated GFR by using Modified MDRD formula.Chronic kidney disease is defined as either kidney damageor GFR <60 mL/min/1.73 m2 for >3 months. CREATININE (test code=CREAT) 0.80 mg/dL 0.55-1.02 Note change in reference range due to change in reagent. BUN/CREATININE RATIO (test code=BUN/CREA) 8.8 10-20 CALCIUM (test code=CA) 8.5 mg/dL 8.5-10.1 HEPATIC FUNCTION [id number] 18:15:00* Test Item Value Reference Range Comments TOTAL PROTEIN (test code=PROT) 9.0 gram/dL 6.4-8.2 ALBUMIN (test code=ALB) 4.1 g/dL 3.4-5.0 GLOBULIN (test code=GLOB) 4.9 gram/dL 2.7-4.2 ALBUMIN/GLOBULIN RATIO (test code=A/G) 0.8 0.75-1.50 BILIRUBIN TOTAL (test code=BILT) 0.50 mg/dL 0.0-1.0 BILIRUBIN DIRECT (test code=BILD) 0.14 mg/dL 0.0-0.20 SGOT/AST (test code=AST) 16 IUnit/L 15-37 SGPT/ALT (test code=ALT) 15 IUnit/L 12-78 ALKALINE PHOSPHATASE TOTAL (test code=ALKP) 57 IUnit/L 45-117 Note change in reference range due to change in reagent. HCG SERUM [id number] 18:15:00* Test Item Value Reference Range Comments HCG SERUM QUAL (test code=HCGQL) NEGATIVE NEGATIVE This HCGQL test is NOT applicable for MALE patients.Check with nurse about probable order error.If Tumor Marker Test needed, nurse should order test "HCGTU"(Test #[id number]) [id number] 18:15:00* Test Item Value Reference Range Comments TROPONIN-I (test code=TROPI) <0.015 ng/mL 0-0.045 BASIC METABOLIC [id number] 17:46:00* Test Item Value Reference Range Comments SODIUM (test code=NA) 134 mmol/L 136-145 POTASSIUM (test code=K) 2.9 mmol/L 3.5-5.[address] ALONZO by MEG 11/08/18 1745Critical results verified and read back by Nurse? Y CHLORIDE (test code=CL) 100.0 mmol/L 98-107 CARBON DIOXIDE (test code=CO2) 25.0 mmol/L 21-32 ANION GAP (test code=GAP) 11.9 10-20 GLUCOSE (test code=GLU) 102 mg/dL 74-106 BLOOD UREA NITROGEN (test code=BUN) 7 mg/dL 7-18 GLOMERULAR FILTRATION RATE (test code=GFR) > 60 mL/min >=60 Estimated GFR by using Modified MDRD formula.Chronic kidney disease is defined as either kidney damageor GFR <60 mL/min/1.73 m2 for >3 months. CREATININE (test code=CREAT) 0.80 mg/dL 0.55-1.02 Note change in reference range due to change in reagent. BUN/CREATININE RATIO (test code=BUN/CREA) 8.8 10-20 CALCIUM (test code=CA) 8.5 mg/dL 8.5-10.1 HEPATIC FUNCTION [id number] 17:46:00* Test Item Value Reference Range Comments TOTAL PROTEIN (test code=PROT) 9.0 gram/dL 6.4-8.2 ALBUMIN (test code=ALB) 4.1 g/dL 3.4-5.0 GLOBULIN (test code=GLOB) 4.9 gram/dL 2.7-4.2 ALBUMIN/GLOBULIN RATIO (test code=A/G) 0.8 0.75-1.50 BILIRUBIN TOTAL (test code=BILT) 0.50 mg/dL 0.0-1.0 BILIRUBIN DIRECT (test code=BILD) 0.14 mg/dL 0.0-0.20 SGOT/AST (test code=AST) 16 IUnit/L 15-37 SGPT/ALT (test code=ALT) 15 IUnit/L 12-78 ALKALINE PHOSPHATASE TOTAL (test code=ALKP) 57 IUnit/L 45-117 Note change in reference range due to change in reagent. HCG SERUM [id number] 17:46:00* Test Item Value Reference Range Comments HCG SERUM QUAL (test code=HCGQL) NEGATIVE [id number] 17:46:00* Test Item Value Reference Range Comments TROPONIN-I (test code=TROPI) <0.015 ng/mL 0-0.045 LACTIC [id number] 17:24:00* Test Item Value Reference Range Comments LACTIC ACID (test code=LACT) 1.2 mmol/L 0.4-1.9 - XR CHEST 1 [id number] 17:10:00 FAX: Geovany Alonzo MD [phone] [place]: [address] St: REG Name: LYNDA PINZON [facility] : [birth year] Age/S: 33/F [address] Unit #: [id number] Loc: [place] [address] Phys: Geovany Alonzo MD Acct: [id number] Dis Date: Status: REG ER PHONE #: [phone] Exam Date: 11/08/2018 1706 FAX #: [phone] Reason: CODE SEPSIS EXAMS: CPT CODE: [id number] XR CHEST 1 V [id number] REASON FOR EXAM: CODE SEPSIS EXAM ORDER DATE: 11/08/2018 4:22 PM Ordering M.DAbel: Geovany Alonzo MD PROCEDURE: - XR CHEST 1 V MARYBEL RISON: FINDINGS: Portable AP frontal view of the chest obtained a t 5:06 PM shows clear lungs without evidence of consolidation. There is no evidence of effusion. The heart size is within normal limits. Pulmo nary vasculatures are unremarkable. IMPRESSION: No active disea se. at 1710 Reported and signed by: Alejandro Becerra M.D. CC: Geovany Alonzo MD Technologist: Stephanie Varela(Todd) Trnscrd Date/Time/By: 9 (171) : By: Nadine.VTL Orig Print D/T: S: 11/08/2018 (1041) PAGE 1 Signed Report URINALYSIS [id number] 17:09:00* Test Item Value Reference Range Comments UA COLOR (test code=COLU) YELLOW YELLOW UA APPEARANCE (test code=APPU) CLEAR CLEAR UA GLUCOSE DIPSTICK (test code=DGLUU) NEGATIVE mg/dL NEGATIVE UA BILIRUBIN DIPSTICK (test code=BILU) NEGATIVE mg/dL NEGATIVE UA KETONE DIPSTICK (test code=KETU) 80 (3+) mg/dL NEGATIVE UA SPECIFIC GRAVITY (test code=SGU) 1.026 1.001-1.035 UA BLOOD DIPSTICK (test code=EVERARDO) Negative mg/dL NEGATIVE UA PH DIPSTICK (test code=FRANK) 5.0 5.0-8.0 UA PROTEIN DIPSTICK (test code=PROU) 30 (1+) mg/dL NEGATIVE UA UROBILINIOGEN DIPSTICK (test code=URO) NEGATIVE mg/dL NEGATIVE UA NITRITE DIPSTICK (test code=YASSINE) NEGATIVE NEGATIVE UA LEUKOCYTE ESTERASE W REFLEX (test code=LEUUR) 2+ Aylin/uL NEGATIVE UA WBC (test code=WBCU) 11-20 per HPF 0-5 UA RBC (test code=RBCU) 0-2 #/HPF 0-5 UA EPITHELIAL CELLS (test code=EPIU) FEW per HPF FEW UA BACTERIA (test code=BACU) FEW #/HPF NONE UA MUCUS (test code=MUCU) FEW #/LPF FEW Urine Source? Clean CatchURINALYSIS [id number] 17:04:00* Test Item Value Reference Range Comments UA COLOR (test code=COLU) YELLOW YELLOW UA APPEARANCE (test code=APPU) CLEAR CLEAR UA GLUCOSE DIPSTICK (test code=DGLUU) NEGATIVE mg/dL NEGATIVE UA BILIRUBIN DIPSTICK (test code=BILU) NEGATIVE mg/dL NEGATIVE UA KETONE DIPSTICK (test code=KETU) 80 (3+) mg/dL NEGATIVE UA SPECIFIC GRAVITY (test code=SGU) 1.026 1.001-1.035 UA BLOOD DIPSTICK (test code=EVERARDO) Negative mg/dL NEGATIVE UA PH DIPSTICK (test code=FRANK) 5.0 5.0-8.0 UA PROTEIN DIPSTICK (test code=PROU) 30 (1+) mg/dL NEGATIVE UA UROBILINIOGEN DIPSTICK (test code=URO) NEGATIVE mg/dL NEGATIVE UA NITRITE DIPSTICK (test code=YASSINE) NEGATIVE NEGATIVE UA LEUKOCYTE ESTERASE W REFLEX (test code=LEUUR) 2+ Aylin/uL NEGATIVE UA WBC (test code=WBCU) per HPF 0-5 UA RBC (test code=RBCU) per HPF 0-5 UA EPITHELIAL CELLS (test code=EPIU) per HPF Few UA BACTERIA (test code=BACU) per HPF NONE Urine Source? Clean CatchCBC W/AUTO [id number] 16:37:00* Test Item Value Reference Range Comments WHITE BLOOD CELL (test code=WBC) 16.9 K/mm3 4.5-12.5 RED BLOOD CELL (test code=RBC) 4.46 mill/mm3 3.7-5.2 HEMOGLOBIN (test code=HGB) 12.0 gram/dL 11.5-15.5 HEMATOCRIT (test code=HCT) 38.7 % 36.0-46.0 MEAN CELL VOLUME (test code=MCV) 86.8 fL 80-98 MEAN CELL HGB (test code=MCH) 26.9 picogram 27.0-33.0 MEAN CELL HGB CONCETRATION (test code=MCHC) 31.0 gram/dL 33.0-36.0 RED CELL DISTRIBUTION WIDTH (test code=RDW) 13.9 % 11.6-16.2 RED CELL DISTRIBUTION WIDTH SD (test code=RDW-SD) 43.8 fL 37.0-51.0 PLATELET COUNT (test code=PLT) 348 K/mm3 150-450 MEAN PLATELET VOLUME (test code=MPV) 10.3 fL 6.7-11.0 NEUTROPHIL % (test code=NT%) 84.3 % 39.0-69.0 IMMATURE GRANULOCYTE % (test code=IG%) 0.8 % 0.0-5.0 LYMPHOCYTE % (test code=LY%) 7.6 % 25.0-55.0 MONOCYTE % (test code=MO%) 6.8 % 0.0-10.0 EOSINOPHIL % (test code=EO%) 0.1 % 0.0-5.0 BASOPHIL % (test code=BA%) 0.4 % 0.0-1.0 NUCLEATED RBC % (test code=NRBC%) 0.0 % 0-0 NEUTROPHIL # (test code=NT#) 14.25 K/mm3 1.8-7.7 IMMATURE GRANULOCYTE # (test code=IG#) 0.13 x10 3/uL 0-0.03 LYMPHOCYTE # (test code=LY#) 1.29 K/mm3 1.0-5.0 MONOCYTE # (test code=MO#) 1.15 K/mm3 0-0.8 EOSINOPHIL # (test code=EO#) 0.01 K/mm3 0.0-0.5 BASOPHIL # (test code=BA#) 0.06 K/mm3 0.0-0.2 NUCLEATED RBC # (test code=NRBC#) 0.00 K/mm3 0.0-0.1 MANUAL DIFF REQUIRED (test code=MDIFF) NO CBC W/AUTO [id number] 16:34:00* Test Item Value Reference Range Comments WHITE BLOOD CELL (test code=WBC) K/mm3 4.5-12.5 RED BLOOD CELL (test code=RBC) mill/mm3 3.7-5.2 HEMOGLOBIN (test code=HGB) 12.0 gram/dL 11.5-15.5 HEMATOCRIT (test code=HCT) 38.7 % 36.0-46.0 MEAN CELL VOLUME (test code=MCV) fL 80-98 MEAN CELL HGB (test code=MCH) picogram 27.0-33.0 MEAN CELL HGB CONCETRATION (test code=MCHC) gram/dL 33.0-36.0 RED CELL DISTRIBUTION WIDTH (test code=RDW) % 11.6-16.2 RED CELL DISTRIBUTION WIDTH SD (test code=RDW-SD) fL 37.0-51.0 PLATELET COUNT (test code=PLT) K/mm3 150-450 MEAN PLATELET VOLUME (test code=MPV) fL 6.7-11.0 NEUTROPHIL % (test code=NT%) % 39.0-69.0 IMMATURE GRANULOCYTE % (test code=IG%) % 0.0-5.0 LYMPHOCYTE % (test code=LY%) % 25.0-55.0 MONOCYTE % (test code=MO%) % 0.0-10.0 EOSINOPHIL % (test code=EO%) % 0.0-5.0 BASOPHIL % (test code=BA%) % 0.0-1.0 NEUTROPHIL # (test code=NT#) K/mm3 1.8-7.7 LYMPHOCYTE # (test code=LY#) K/mm3 1.0-5.0 MONOCYTE # (test code=MO#) K/mm3 0-0.8 EOSINOPHIL # (test code=EO#) K/mm3 0.0-0.5 BASOPHIL # (test code=BA#) K/mm3 0.0-0.2
[2019-09-18] MEDS ORDERED: ASPIRIN 81 MG CHEW TAB PO ONE (22:30)
[2019-09-18 22:38] LABS: BASOPHILS # (AUTO) 0.1 (0.0-0.1); BASOPHILS % 0.5 % (0.0-1.0); EOSINOPHILS # (AUTO) 0.1 (0.0-0.4); EOSINOPHILS % 0.8 % (0.0-6.0); HEMATOCRIT 38.9 % (34.2-44.1); HEMOGLOBIN 12.8 g/dL (12.0-16.0); LYMPHOCYTES # (AUTO) 3.6 (1.0-3.2); MEAN CORPUSCULAR HEMOGLOBIN 27.9 pg (28-32); MEAN CORPUSCULAR HGB CONC 32.9 g/dL (31-35); MEAN CORPUSCULAR VOLUME 84.9 fL (81-99); MONOCYTES % 7.8 % (4.4-11.3); NEUTROPHILS # (AUTO) 7.5 (2.1-6.9); NEUTROPHILS % 61.5 % (38.7-80.0); PLATELET COUNT 419 x10e3/uL (140-360); RED BLOOD COUNT 4.58 x10e6/uL (3.6-5.1); RED CELL DISTRIBUTION WIDTH 13.6 % (11.7-14.4)
[2019-09-18 22:57] LABS: ALANINE AMINOTRANSFERASE 12 IU/L (0-55); ALBUMIN/GLOBULIN RATIO 0.9 (0.8-2.0); ALKALINE PHOSPHATASE 58 IU/L (40-150); ANION GAP 12.1 mmol/L (8-16); BLOOD UREA NITROGEN 7 mg/dL (7-26); BUN/CREATININE RATIO 9 (6-25); CALCIUM 8.9 mg/dL (8.4-10.2); CARBON DIOXIDE 25 mmol/L (22-29); CHLORIDE 103 mmol/L (98-107); CREATINE KINASE 81 IU/L (29-168); CREATININE, SERUM 0.82 mg/dL (0.57-1.11); EST GLOMERULAR FILTRATION RATE > 60 ML/MIN (60-); GLUCOSE 109 mg/dL (74-118); POTASSIUM 3.1 mmol/L (3.5-5.1); SODIUM 137 mmol/L (136-145)
[2019-09-18] MEDS ORDERED: FAMOTIDINE 20 MG/2 ML VIAL IV STA (23:02)
--- NOTE | 2019-09-18 23:05 | Diagnostic Imaging Report ---
EXAMINATION: PA and lateral views of the chest. COMPARISON: None CLINICAL HISTORY: Back pain, abdominal pain, shortness of breath DISCUSSION: The lungs are well inflated. No focal airspace consolidation, pleural effusion, or pneumothorax. Cardiomediastinal contour and pulmonary vasculature are within normal limits. No acute osseous abnormalities. IMPRESSION: No acute cardiopulmonary abnormalities. Signed by: Dr. Jayy Gutierrez M.D. on 09/18/2019 11:02 PM
[2019-09-18] MEDS ORDERED: MORPHINE SULFATE INJ 4 MG/ML INJ 1ML IV PRN (23:15)
--- NOTE | 2019-09-18 23:41 | Diagnostic Imaging Report ---
EXAMINATION: CT of the chest with contrast, PE protocol. TECHNIQUE: Spiral CT images of the chest were performed from the lung apices through the level of the adrenal glands after the IV administration of 100 cc of Isovue 370. Thin section reconstructions were obtained with special concentration on the pulmonary arteries. COMPARISON: Chest radiograph same day CLINICAL HISTORY:Midsternal chest pain radiating to the upper back DISCUSSION: Vasculature: [<The main pulmonary artery, right and left pulmonary arteries, and their visualized lobar and segmental branches are patent, without filling defect. The pulmonary outflow tract is of normal caliber.>] No ectasia or aneurysmal dilatation of the thoracic aorta. Lungs: The lungs are clear, without consolidation, mass lesion, or bronchiectasis. Airways: <The major airways are clear.> Pleura: <There is no evidence of pleural effusion or pneumothorax.> Heart and mediastinum: The thyroid gland is enlarged and indistinct.. No axillary, hilar, or mediastinal lymphadenopathy. Abdomen: Radiopaque gallstones within the dependent portion of the gallbladder and within the gallbladder fundus/phrygian cap.. Visualized portions of the liver, spleen, pancreas, and adrenal glands are unremarkable. Bones and soft tissues: <The thoracic skeleton is normal for age. The soft tissues are unremarkable.> IMPRESSION: No pulmonary embolus to the level of the segmental branch pulmonary arteries. Clear lungs. Thyromegaly. Correlation with thyroid function tests is suggested, and outpatient thyroid ultrasound may be obtained for further evaluation if clinically warranted. Cholelithiasis. Signed by: Dr. Jayy Gutierrez M.D. on 09/18/2019 11:38 PM
[2019-09-19] VITALS: BP 110/80
== END 2019-09-19 00:24 | disposition home or self-care (01) ==
LOC: ER 22:14
DX: R07.89 Other chest pain (principal); E87.6 Hypokalemia; K52.9 Noninfective gastroenteritis and colitis, unspecified
CPT/HCPCS: 36415; 71046; 71260; 80053; 81025; 82550; 82553; 83880; 84484; 85025; 85379; 93005; 99284; J2270

== ENCOUNTER → 2019-10-03 | Day surgery (SDC) | payer OTHER ==
[~2019-10-03] MED LIST: BUPIVACAINE 0.25% 30ML SDV INJ ONE; DEXAMETHASONE SOD PHOS INJ 4 MG/ML VIAL ONE; FENTANYL CITRATE/PF 100MCG/2 ML INJ ONE; GLYCOPYRROLATE INJ 0.2 MG/ML VIAL ONE; KETOROLAC TROMETHAMINE 30 MG/ML VIAL ONE; LIDOCAINE HCL 2% LOCAL INJ 5 ML SDV VIAL INJ ONE; MIDAZOLAM HCL 2 MG/2 ML VIAL ONE; NEOSTIGMINE 1 MG/ML 10ML VIAL ONE; ONDANSETRON HCL INJ 2MG/ML 2ML 2 MG/ML VIAL ONE; PROPOFOL IV EMULSION 10 MG/ML 20 ML VIAL ONE; ROCURONIUM BROMIDE 10 MG/ML 5ML VIAL ONE; SEVOFLURANE INHAL SOLN 250 ML PEN BTL ONE; levothyroxine PO
--- OUTSIDE RECORDS SUMMARY | 2019-10-03 07:24 | XMS REPORT ---
Author Author Admin, [place] Organization Unknown Address Unknown Phone Unavailable PROBLEMS Condition Status Date Provider Notes BMI 33-33.9 adult active Briseyda Helio Cholelithiasis active Briseyda Helio Attention deficit disorder active Virgilio Perkins PAT positive active Virgilio Perkins Vaccination Against Influenza completed - Virgilio Perkins Pre-diabetes active Destinee Cano Hyperlipidemia active Destinee Cano Thrombocytosis completed - Destinee Cano Std screening active Last Patten in the family completed - Destinee Cano BMI 31.0-31.9 completed - Briseyda Helio Obesity active Destinee Cano Folliculitis completed - Destinee Cano Hypothyroidism active Destinee Cano Goiter active Destinee Cano Well woman active Destinee Cano ENCOUNTERS Date Type Provider Location Encounter Diagnosis - Ambulatory Encounter Gisele Camacho [facility] UNK - Ambulatory Encounter Briseyda Helio Briseyda Helio [facility] UNK - Ambulatory Encounter Briseyda Helio Briseyda Helio Gila Salmeron [facility] BMI 31.0-31.9CholelithiasisBMI 33-33.9 adult - Ambulatory Encounter Roxana Ford [facility] UNK - Ambulatory Encounter [facility] UNK - Ambulatory Encounter Ancelmo Beatty [facility] UNK - Ambulatory Encounter Ronda Franco [facility] UNK - Ambulatory Encounter Gisele Camacho [facility] UNK - Ambulatory Encounter Virgilio Perkins [facility] UNK - Ambulatory Encounter Virgilio Perkins [facility] UNK - [facility] - Ambulatory Encounter Virgilio Perkins [facility] UNK - [facility] Attention deficit disorder - Ambulatory Encounter Virgilio BirdLogtina [facility] UNK - Ambulatory [facility] - Ambulatory Encounter Gretelnenoeyad Doug [facility] UNK - Ambulatory Encounter Virgilio Perkins [facility] UNK - Ambulatory Encounter Virgilio Jaquez Camachoclark Velazco [facility] Vaccination Against InfluenzaANA positive - Ambulatory Encounter Last Gilmore [facility] Contact Center UNK - Ambulatory Encounter Lasttina Patten [facility] UNK - Ambulatory Encounter Last [...] [facility] - Ambulatory Encounter Tliana Mingo [facility] UNK - Ambulatory Encounter Last Sandor Last Sandor [facility] UNK - Ambulatory Encounter Last Sandor Last Sandor [place] [facility] Std screening - Ambulatory Encounter Vonnie Cano [facility] UNK - Ambulatory Encounter Vonnie Perrin [facility] UNK - Ambulatory Encounter Destinee Cano [facility] UNK - Ambulatory Encounter Destinee Cano [facility] Std screeningThrombocytosis - Ambulatory Encounter Destinee Goldbergsy Perrin [facility] UNK - Ambulatory Encounter Destinee Cano [facility] UNK - Ambulatory Encounter Destinee Cano [facility] UNK - Ambulatory Encounter Destinee Sarabia [facility] FolliculitisDeath in the family - Ambulatory Encounter Destinee Cano [facility] UNK - Ambulatory Encounter Vonnie Lantigua [facility] UNK - Ambulatory Encounter Fax Status LinkLogic [facility] - Ambulatory Encounter Fax Status [facility] - Ambulatory Encounter Vonnie Aydin [facility] UNK - Ambulatory Encounter Destinee BirdLogic [facility] UNK - Ambulatory Encounter Destinee Cano [facility] UNK - Ambulatory Encounter [facility] Std screeningThrombocytosisHyperlipidemiaPre-diabetes - Ambulatory Encounter [facility] - [facility] Encounter Destinee BirdLogic Vonnie Perrin [facility] UNK - Ambulatory Encounter Destinee Cano LinkLogic [facility] UNK - Ambulatory Encounter Destinee Cano LinkLogic [facility] UNK - Ambulatory Encounter Destinee Cano [facility] UNK - Ambulatory Encounter Destinee Cano [facility] UNK - Ambulatory Encounter Destinee Cano [facility] UNK - Ambulatory Encounter Rachele De La Cruz [facility] UNK - Ambulatory Encounter Destinee Vidal [facility] Practice Well womanGoiterHypothyroidismFolliculitisObesityBMI 31.0-31.9Death in the family VITAL SIGNS Date Observation Value Provider oxygen saturation, oximetry 97 % Gila Jaron " blood pressure, diastolic 83 mm[Hg] Gila Salmeron " blood pressure, systolic 121 mm[Hg] Gila Salmeron " respiratory rate E&M 18 /min Gila Salmeron " pulse rate E&M 66 /min Gila Salmeron " temperature E&M 97.7 [degF] Gila Salmeron " method used to obtain blood pressure automatic Gila Salmeron " Blood Pressure Position 01 sitting Gila Salmeron " blood pressure, site #1 left arm Gila Salmeron " temperature site oral Gila Salmeron " weight E&M 196.20 lbs. Gila Salmeron " weight in kilograms E&M 89.18 kg Gila Salmeron " height E&M 64 [in_i] Gila Salmeron " height in centimeters E&M 162.56 cm Gila Salmeron oxygen saturation, oximetry 98 % [facility] " blood pressure, diastolic 80 mm[Hg] [facility] " blood pressure, systolic 121 mm[Hg] [facility] " respiratory rate E&M 17 /min [facility] " pulse rate E&M 52 /min [facility] " temperature E&M 97.6 [degF] [facility] " weight E&M 208.50 lbs. [facility] " weight in kilograms E&M 94.77 kg [facility] " method used to obtain blood pressure automatic [facility] " Blood Pressure Position 01 sitting [facility] " blood pressure, site #1 left arm [facility] " temperature site oral [facility] " height E&M 64 [in_i] [facility] " height in centimeters E&M 162.56 cm [facility] oxygen saturation, oximetry 97 % [facility] " blood pressure, diastolic 86 mm[Hg] [facility] " blood pressure, systolic 124 mm[Hg] [facility] " respiratory rate E&M 18 /min [facility] " pulse rate E&M 73 /min [facility] " temperature E&M 98.0 [degF] [facility] " weight E&M 200 lbs. [facility] " weight in kilograms E&M 90.91 kg [facility] " method used to obtain blood pressure automatic [facility] " Blood Pressure Position 01 sitting [facility] " blood pressure, site #1 left arm [facility] " temperature site oral [facility] " height E&M 64 [in_i] [facility] " height in centimeters E&M 162.56 cm Greteldallaseyad [facility] oxygen saturation, oximetry 96 % [place] " blood pressure, diastolic 78 mm[Hg] [place] " blood pressure, systolic 114 mm[Hg] [place] " pulse rate E&M 56 /min [place] " temperature E&M 98.6 [degF] [place] " weight E&M 205.80 lbs. [place] " weight in kilograms E&M 93.55 kg [place] " method used to obtain blood pressure automatic [place] " Blood Pressure Position 01 sitting [place] " blood pressure, site #1 left arm [place] " temperature site oral [place] " height E&M 64 [in_i] [place] " height in centimeters E&M 162.56 cm [place] oxygen saturation, oximetry 99 % Mckenzie Azul " pulse rate E&M 49 /min Mckenzie Azul " blood pressure, diastolic 73 mm[Hg] Mckenzie Azul " blood pressure, systolic 109 mm[Hg] Mckenzie Azul " temperature E&M 97.6 [degF] Mckenzie Azul " weight E&M 179.50 lbs. Mckenzie Azul " weight in kilograms E&M 81.59 kg Mckenzie Jorge Alberto " method used to obtain blood pressure automatic Mckenzie Jorge Alberto " Blood Pressure Position 01 sitting Mckenzie [...] " Blood Pressure Position 01 sitting Mckenzie Jorge Alberto " blood pressure, site #1 left arm Mckenzie Jorge Alberto " temperature site tympanic Mckenzie Jorge Alberto ALLERGIES Allergy Name Onset Date Reaction Criticality [...] MEDICATION USE Medication Instructions Dates Provider Comments IBUPROFEN 400 MG ORAL TABLET 1 by mouth every 8 hours as needed Briseyda Helio LEVOTHYROXINE SODIUM 112 MCG ORAL TABLET One tab by mouth daily Destinee Cano SOCIAL HISTORY Date Observation Value Provider drug use, illicit Never Gila Salmeron " alcohol use Currently Gila Salmeron " social history E&M Single. Single. 3 children. Partner in 01/2016 2/2 suicide. Not homeless. Employed. Sex at : Female. Gender identity: Female. Gender of partner(s): Female. Sexually Active: Yes. Not currently sexually active. Gila Salmeron " social history reviewed E&M reviewed today Gila Salmeron " sexual orientation Heterosexual Gila Salmeron " is there any chance that you could be ? No Gila Salmeron " passive cigarette smoke exposure No Gila Salmeron " smoking status never smoker Gila Salmeron time of call 09/19/2019 1:36 PM Emeka Ford time of call 08/22/2019 3:52 PM Mary Vipul Decker [facility] Counsel[facility] Provided T dallas Camacho " Nutrition intervention T [facility] Camacho " drug use, illicit Never [facility] " alcohol use Currently [facility] " social history E&M Single. Single. 3 children. Partner in 01/2016 2 suicide. Not homeless. Employed. Sex at : Female. Gender identity: Female. Gender of partner(s): Female. Sexually Active: Yes. Not currently sexually active. [facility] " social history reviewed E&M reviewed today [facility] " is there any chance that you could be ? No Debdallasth Camacho " sexual orientation Heterosexual [facility] " passive cigarette smoke exposure [facility] " smoking status never smoker [facility] " Exercise Program Referral T dallas Camacho " Weight Management Counseling Provided T [facility] Camacho " Nutrition intervention T Debdallas Camacho " drug use, illicit Never [facility] " alcohol use Currently [facility] " social history E&M Single. Single. 3 children. Partner in 01/2016 2 suicide. Not homeless. Employed. Sex at : Female. Gender identity: Female. Gender of partner(s): Female. Sexually Active: Yes. Not currently sexually active. [facility] " social history reviewed E&M reviewed today [facility] " is there any chance that you could be ? No Deborath Camacho " sexual orientation Heterosexual Deborath Camacho " passive cigarette smoke exposure No Deborath Camacho " smoking status never smoker Deborath Camacho time of call 04/17/2018 4:30 PM Gretchen Brush " sexual orientation Heterosexual [place] " is there any chance that you could be ? No [place] " passive cigarette smoke exposure No [place] " smoking status never smoker [place] " Exercise Program Referral T [place] " Weight Management Counseling Provided T [place] " Nutrition intervention T [place] social history E&M Single. Single. 3 children. Partner in 01/2016 2/2 suicide. Not homeless. Employed. Sex at : Female. Gender identity: Female. Gender of partner(s): Female. Sexually Active: Yes. Not currently sexually active. Destinee Cano " social history reviewed E&M reviewed today Destinee Cano " Exercise Program Referral T Destinee Cano " Weight Management Counseling Provided Margaret Cano " Nutrition intervention T Destinee Cano [...] - sexual practice Not currently sexually active. Dsetinee Cano " social history reviewed E&M reviewed today Destinee Cano alcohol use, frequency holidays/special occasions only Kathy Cornell " sex at Female Kathy Sarabia " [...] Available MENTAL STATUS Date Observation Value Provider mental status examination: orientation E&M oriented to time, place, and person Briseyda Cadet " assessment of mood and affect E&M no depression, anxiety, or agitation Briseyda Cadet " Generalized Anxiety Disorder Questionnaire - Question 2 0 Gila Salmeron " Generalized Anxiety Disorder Questionnaire - Question 1 0 Gila Salmeron assessment of judgment and insight E&M intact Virgilio Perkins " mental status examination: orientation E&M oriented to time, place, and person Virgilio Perkins " assessment of mood and affect E&M no depression, anxiety, or agitation Virgilio Perkins " Generalized Anxiety Disorder Questionnaire - Question 2 0 Camacho " Generalized Anxiety Disorder Questionnaire - Question 1 0 Greteleverett Jenningsados assessment of judgment and insight E&M intact Virgilio Perkins " mental status examination: orientation E&M oriented to time, place, and person Virgilio Vipul Perkins " assessment of mood and affect E&M no depression, anxiety, or agitation Virgilio Perkins " Generalized Anxiety Disorder Questionnaire - Question 2 0 Cam[place] " Generalized Anxiety Disorder Questionnaire - Question 1 0 [facility] Camacho Generalized Anxiety Disorder Questionnaire - Question 2 0 [place] " Generalized Anxiety Disorder Questionnaire - Question 1 0 [place] assessment of judgment and insight E&M intact [...] name Policy type / Coverage type Covered green party ID Sliding Fee - Cat 1 [employer] insurance [employer] [id number] [facility] [place] [id number] ADVANCE DIRECTIVES No Information Available TREATMENT PLAN [...] Chlamydia/GC Amplification CBC With Differential/Platelet - - Both Nutrition / Exercise Counseling (Obese) Est Patient Exp Problem - 34722 Est Patient Exp Problem - 67375 Behavioral Health - Psychological Testing Est Patient Exp Problem - 00815 INFLUENZA VACCINE QUADRIVALENT 3 YRS PLUS IM Admin of Vaccine - Injection - 1 Ofc Vst, Est Level II Est Patient Detailed - 13704 New Patient Well Exam (18 - 39 Yrs) - 30255 Urinalysis - Dip only - In House Urinalysis - - In House Handling of specimen for transfer Venipuncture TDAP INFLUENZA VACCINE QUADRIVALENT 3 YRS PLUS IM HISTORY OF PROCEDURES Procedure Date Procedure Name Provider Procedure Notes Status Both Nutrition / Exercise Counseling (Obese) Briseyda Cadet completed Urinalysis - Dip only - In House Destinee Cano completed Urinalysis - - In House Destinee Cano completed Venipuncture Destinee Cano completed GOALS No Information Available HEALTH CONCERNS No Information Available
--- OUTSIDE RECORDS SUMMARY | 2019-10-03 07:24 | XMS REPORT ---
Author Author Admin, [place] Organization Unknown Address Unknown Phone Unavailable PROBLEMS [...] Location Encounter Diagnosis - Ambulatory Encounter Roxana Ford [facility] UNK - Ambulatory Encounter Roxana Decker [facility] Contact Center UNK - Ambulatory Encounter Ancelmo King [facility] UNK - Ambulatory Encounter Ronda Franco [facility] UNK - Ambulatory Encounter Gisele Camacho [facility] UNK - Ambulatory Encounter Virgilio Perkins [facility] UNK - Ambulatory Encounter Virgilio Perkins [facility] UNK - Ambulatory Encounter Virgilio Beatty Gisele Jenningsados [facility] UNK - Ambulatory Encounter Virgilio Perkins [facility] UNK - [facility] Attention deficit disorder - Ambulatory Encounter Virgilio Beatty [facility] UNK - Ambulatory Encounter Virgilio Beatty [facility] UNK - Ambulatory Encounter Gisele Camacho [facility] UNK - Ambulatory Encounter Virgilio Perkins [facility] UNK - [facility] Vaccination Against InfluenzaANA positive - Ambulatory Encounter Last Sandor Last Sandor Gilmore [facility] UNK - Ambulatory Encounter Last Sandor [...] Medicine UNK - Ambulatory Encounter Yoseph Llamas LM Adult Medicine UNK - Ambulatory Encounter Last Patten [facility] Adult Medicine UNK - Ambulatory Encounter Last East [facility] Adult Medicine Std screening - Ambulatory Encounter Vonnie Cano [facility] Contact Center UNK - Ambulatory Encounter [facility] - [facility] - [facility] Destinee [facility] Std screeningThrombocytosis - Ambulatory Encounter Destinee Cano LinkLogic [facility] Perrin [facility] - Ambulatory Encounter Destinee [facility] - Ambulatory Encounter Destinee [facility] - Ambulatory Encounter Destinee Sarabia [facility] Practice FolliculitisDeath in the family - Ambulatory Encounter Destinee [facility] - Ambulatory Encounter Vonnie Ware [facility] Contact Center UNK - Ambulatory Encounter Fax Status LinkLogic [facility] UNK - Ambulatory Encounter Fax Status LinkLog[facility] UNK - Ambulatory Encounter [facility] - [facility]ulatory Encounter Destinee Cano Link[facility] UNK - Ambulatory Encounter Destinee Cnao [facility] - [facility] Encounter Destinee Cano [facility] Std screeningThrombocytosisHyperlipidemiaPre-diabetes - Ambulatory Encounter Destinee Cano [facility] UNK - Ambulatory [facility] Perrin [facility] UNK - Ambulatory Encounter Destinee BirdLogtina [facility] UNK - Ambulatory Encounter [facility] UNK - Ambulatory Encounter Destinee Cano [facility] UNK - Ambulatory Encounter Destinee Cano [facility] UNK - Ambulatory Encounter Destinee Cano [facility] UNK - Ambulatory Encounter Rachele De La Cruz [facility] UNK - Ambulatory Encounter Destinee Vidal [facility] Well womanGoiterHypothyroidismFolliculitisObesityBMI 31.0-31.9Death in the family VITAL SIGNS Date Observation Value Provider oxygen saturation, oximetry 98 % Deborath Camacho " blood pressure, diastolic 80 mm[Hg] Deborath Camacho " blood pressure, systolic 121 mm[Hg] Deborath Camacho " respiratory rate E&M 17 /min Deborath Camacho " pulse rate E&M 52 /min Deborath Camacho " temperature E&M 97.6 [degF] Deborath Camacho " weight E&M 208.50 lbs. Deborath Camacho " weight in kilograms E&M 94.77 kg Deborath Camacho " method used to obtain blood pressure automatic Deborath Camacho " Blood Pressure Position 01 sitting Deborath Camacho " blood pressure, site #1 left arm Deborath Camacho " temperature site oral Deborath Camacho " height E&M 64 [in_i] [facility] " height in centimeters E&M 162.56 cm [facility] oxygen saturation, oximetry 97 % [facility] " blood pressure, diastolic 86 mm[Hg] [facility] " blood pressure, systolic 124 mm[Hg] [facility] " respiratory rate E&M 18 /min [facility] " pulse rate E&M 73 /min [facility] " temperature E&M 98.0 [degF] [facility] " weight E&M 200 lbs. [facility] " weight in kilograms E&M 90.91 kg [facility] " method used to obtain blood pressure automatic [facility] " Blood Pressure Position 01 sitting [facility] " blood pressure, site #1 left arm [facility] " temperature site oral [facility] " height E&M 64 [in_i] [facility] " height in centimeters E&M 162.56 cm [facility] oxygen saturation, oximetry 96 % [place] [...] weight in kilograms E&M 82.27 kg Kathy Asrabia " method used to obtain blood pressure [...] Date Observation Value Provider time of call 09/19/2019 1:36 PM Emeka Ford time of call 08/22/2019 3:52 PM Mary Decker Exercise Program [facility] " Weight [facility] Counseling Provided T [facility] " Nutrition intervention T [place] Camacho " drug use, illicit Never [facility] " alcohol use Currently [facility] " social history E&M Single. Single. 3 children. Partner in 01/2016 2/2 suicide. Not homeless. Employed. Sex at : Female. Gender identity: Female. Gender of partner(s): Female. Sexually Active: Yes. Not currently sexually active. [facility] " social history reviewed E&M reviewed today [facility] " is there any chance that you could be ? No Debcolumbuseyad Camacho " sexual orientation Heterosexual [facility] " passive cigarette smoke exposure No [facility] " smoking status never smoker [facility] " Exercise Program Referral T Gretelcolumbus Camacho " Weight Management Counseling Provided T [facility] " Nutrition intervention T [facility] Camacho " drug use, illicit Never [facility] " alcohol use Currently [facility] " social history E&M Single. Single. 3 children. Partner in 01/2016 2/2 suicide. Not homeless. Employed. Sex at : Female. Gender identity: Female. Gender of partner(s): Female. Sexually Active: Yes. Not currently sexually active. Debcolumbuseyad Camacho " social history reviewed E&M reviewed today [facility] " is there any chance that you could be ? No Debcolumbuseyad JenningsCamacho " sexual orientation Heterosexual [facility] " passive cigarette smoke exposure No Deborath [...] Destinee Cano " Exercise Program Referral T Detsinee Cano " Weight Management Counseling Provided T Destinee Cano " Nutrition intervention T Destinee Cano " drug use, illicit Never Mckenzie Azul " alcohol use Currently Mckenzie Azul " is there any chance that you could be ? No Mckenzie Azul " passive cigarette smoke exposure No Mckenzie Azul " smoking status never smoker Mckenzie Azul time of call 09/01/2016 7:58 AM Rhina Chaz social history E&M Single. Single. 3 children. [...] only Kathy Sarabia " sex at Female Kathyantonieta Sarabia " patient considered to be homeless [...] Anxiety Disorder Questionnaire - Question 2 0 Gisele Camacho " Generalized Anxiety Disorder Questionnaire - Question 1 0 Gisele Camacho assessment of judgment and insight E&M intact Virgilio Perkins " mental status examination: orientation E&M oriented to time, place, and person Virgilio Perkins " assessment of mood and affect E&M no depression, anxiety, or agitation Virgilio Perkins " Generalized Anxiety Disorder Questionnaire - Question 2 0 neno Camacho " Generalized Anxiety Disorder Questionnaire - [...] Disorder Questionnaire - Question 2 0 Mckenzie Jorge Alberto " Generalized Anxiety Disorder Questionnaire - Question [...] name Policy type / Coverage type Covered democrat ID Sliding Fee - Cat 1 [email or web address] [id number] NANO [email or web address] [id number] ADVANCE DIRECTIVES No Information Available TREATMENT PLAN [...] - - Est Patient Exp Problem - 19548 Behavioral Health - Psychological Testing Est Patient Exp Problem - 12902 INFLUENZA VACCINE QUADRIVALENT 3 YRS PLUS IM Admin of Vaccine - Injection - 1 Ofc Vst, Est Level II Est Patient Detailed - 15978 New Patient Well Exam (18 - 39 Yrs) - 36449 Urinalysis - Dip only - In House [...]
--- OUTSIDE RECORDS SUMMARY | 2019-10-03 07:24 | XMS REPORT ---
Author Author Admin, [place] Organization Unknown Address Unknown Phone Unavailable PROBLEMS [...] Encounter Diagnosis - Ambulatory Encounter Gisele Camacho [facility] UNK - Ambulatory Encounter Briseyda Helio Briseyda Helio [facility] UNK - Ambulatory Encounter Briseyda Helio Briseyda Helio Gila Salmeron [facility] Practice BMI 31.0-31.9CholelithiasisBMI 33-33.9 adult - Ambulatory Encounter Roxana Ford [facility] Services UNK - Ambulatory Encounter Roxana [facility] UNK - Ambulatory Encounter Ancelmo Beatty [facility] UNK - Ambulatory Encounter Ronda Franco [facility] Behavioral Health UNK - Ambulatory Encounter Gisele Camacho [facility] UNK - Ambulatory Encounter Virgilio Perkins [facility] UNK - Ambulatory Encounter Virgilio Perkins [facility] UNK - Ambulatory En[facility] - Ambulatory Encounter Virgilio Perkins [facility] UNK - Ambulatory Encounter Virgilio [facility] Attention deficit disorder - Ambulatory Encounter Virgilio BirdLogtina [facility] UNK - Ambulatory Encounter [facility]gilio Perkins [facility] - Ambulatory Encounter Gretelnenoeyad Doug [facility] UNK - Ambulatory Encounter Virgilio Perkins [facility] UNK - Ambulatory Encounter Virgilio Jaquez Camachoclark Velazco [facility] Vaccination Against InfluenzaANA positive - Ambulatory Encounter Last Gilmore [facility] Contact Center UNK - Ambulatory Encounter Lasttina Patten [facility] Adult Medicine UNK - Ambulatory Encounter Last [...] Adult Medicine UNK - Ambulatory Encounter Tliana Baraga [facility] Adult Medicine UNK - Ambulatory Encounter Last Sandor Last Sandor LM Adult Medicine UNK - Ambulatory Encounter Last Sandor Last Sandor [place] [facility] Adult Medicine Std screening - Ambulatory Encounter Vonnie Cano [facility] UNK - Ambulatory Encounter Vonnie Perrin [facility] UNK - Ambulatory Encounter Destinee Cano [facility] UNK - Ambulatory Encounter Destinee Cano [facility] Std screeningThrombocytosis - Ambulatory Encounter Destinee Goldbergsy Perrin [facility] UNK - Ambulatory Encounter Destinee Cano [facility] UNK - Ambulatory Encounter Destinee Cano [facility] Practice UNK - Ambulatory Encounter Destinee Sarabia [facility] FolliculitisDeath in the family - Ambulatory Encounter Destinee Cano [facility] UNK - Ambulatory Encounter Vonnie Lantigua [facility] UNK - Ambulatory Encounter Fax Status LinkLogic [facility] UNK - Ambulatory Encounter Fax Status [facility] - Ambulatory Encounter Vonnie Aydin [facility] UNK - Ambulatory Encounter Destinee BirdLogic [facility] UNK - Ambulatory Encounter Destinee Cano [facility] UNK - Ambulatory Encounter Destinee [facility] Std screeningThrombocytosisHyperlipidemiaPre-diabetes - Ambulatory Encounter Destinee [facility] - Ambulatory Encounter Destinee BirdLogic Vonnie Perrin [facility] UNK - Ambulatory Encounter Destinee Cano LinkLogic [facility] UNK - Ambulatory Encounter Destinee Cano LinkLogic [facility] UNK - Ambulatory Encounter Destinee Cano [facility] UNK - Ambulatory Encounter Destinee Cano [facility] UNK - Ambulatory Encounter Destinee Cano [facility] UNK - Ambulatory Encounter Rachele De La Cruz [facility]GET[facility]IM[facility] UNK - Ambulatory Encounter Destinee Vidal [facility] Practice Well womanGoiterHypothyroidismFolliculitisObesityBMI 31.0-31.9Death in the family [...] Gila Salmeron oxygen saturation, oximetry 98 % [facility] " blood pressure, diastolic 80 mm[Hg] [facility] " blood pressure, systolic 121 mm[Hg] [facility] " respiratory rate E&M 17 /min [facility] " pulse rate E&M 52 /min [facility] " temperature E&M 97.6 [degF] [facility] " weight E&M 208.50 lbs. [facility] " weight in kilograms E&M 94.77 kg [facility] " method used to obtain blood pressure automatic [facility] " Blood Pressure Position 01 sitting [facility] " blood pressure, site #1 left arm [facility] " temperature site oral [facility] " height E&M 64 [in_i] [facility] " height in centimeters E&M 162.56 cm [facility] oxygen saturation, oximetry 97 % [facility] " blood pressure, diastolic 86 mm[Hg] [facility] " blood pressure, systolic 124 mm[Hg] [facility] " respiratory rate E&M 18 /min [facility] " pulse rate E&M 73 /min [facility] " temperature E&M 98.0 [degF] [facility] " weight E&M 200 lbs. [facility] " weight in kilograms E&M 90.91 kg [facility] " method used to obtain blood pressure automatic [facility] " Blood Pressure Position 01 sitting [facility] " blood pressure, site #1 left arm [facility] " temperature site oral [facility] " height E&M 64 [in_i] [facility] " height in centimeters E&M 162.56 cm Gretelbig bear lakeeyad [facility] oxygen saturation, oximetry 96 % [place] [...] Mary Vipul Decker Exercise [facility] Counseling Provided T [place] Camacho " Nutrition intervention T [facility] Camacho " drug use, illicit Never [facility] " alcohol use Currently [facility] " social history E&M Single. Single. 3 children. Partner in 01/2016 2 suicide. Not homeless. Employed. Sex at : Female. Gender identity: Female. Gender of partner(s): Female. Sexually Active: Yes. Not currently sexually active. [facility] " social history reviewed E&M reviewed today [facility] " is there any chance that you could be ? No Debbig bear laketh Camacho " sexual orientation Heterosexual [facility] " passive cigarette smoke exposure No [facility] " smoking status never smoker [facility] " Exercise Program Referral T [place] Camacho " Weight Management Counseling Provided T [facility] Camacho " Nutrition intervention T [place] Camacho " drug use, illicit Never [facility] " alcohol use Currently [facility] " social history E&M Single. Single. 3 children. Partner in 01/2016 2 suicide. Not homeless. Employed. Sex at : Female. Gender identity: Female. Gender of partner(s): Female. Sexually Active: Yes. Not currently sexually active. [facility] " social history reviewed E&M reviewed today [facility] " is there any chance that [...] Anxiety Disorder Questionnaire - Question 1 0 [facility] Camacho Generalized Anxiety Disorder Questionnaire - Question [...] name Policy type / Coverage type Covered constitution party ID Sliding Fee - Cat 1 [employer] [id number] [facility] [employer] [id number] ADVANCE DIRECTIVES No Information Available TREATMENT PLAN [...] Counseling (Obese) Est Patient Exp Problem - 75294 Est Patient Exp Problem - 10445 Behavioral Health - Psychological Testing Est Patient Exp Problem - 02794 INFLUENZA VACCINE QUADRIVALENT 3 YRS PLUS IM Admin of Vaccine - Injection - 1 Ofc Vst, Est Level II Est Patient Detailed - 40715 New Patient Well Exam (18 - 39 Yrs) - 13632 Urinalysis - Dip only - In House [...]
[2019-10-03 09:20] LABS: PREGNANCY TEST, URINE NEGATIVE (NEGATIVE)
[2019-10-03 09:23] LABS: BILIRUBIN,URINE NEGATIVE (NEGATIVE); COLOR,URINE YELLOW (YELLOW); KETONES,URINE NEGATIVE (NEGATIVE); PROTEIN,URINE DIPSTICK NEGATIVE (NEGATIVE); URINE UROBILINOGEN 0.2 mg/dL (0.2 - 1)
[2019-10-03 09:24] LABS: CLARITY,URINE HAZY (CLEAR); LEUKOCYTE ESTERASE ,URINE TRACE (NEGATIVE); NITRITE,URINE POSITIVE (NEGATIVE)
[2019-10-03 09:35] LABS: BASOPHILS # (AUTO) 0.1 (0.0-0.1); BASOPHILS % 0.9 % (0.0-1.0); EOSINOPHILS # (AUTO) 0.1 (0.0-0.4); EOSINOPHILS % 1.1 % (0.0-6.0); HEMATOCRIT 42.2 % (34.2-44.1); HEMOGLOBIN 13.6 g/dL (12.0-16.0); LYMPHOCYTES # (AUTO) 1.7 (1.0-3.2); LYMPHOCYTES % 17.5 % (18.0-39.1); MEAN CORPUSCULAR HGB CONC 32.2 g/dL (31-35); MONOCYTES # (AUTO) 0.7 (0.2-0.8); MONOCYTES % 6.9 % (4.4-11.3); NEUTROPHILS % 73.2 % (38.7-80.0); PLATELET COUNT 412 x10e3/uL (140-360); RED BLOOD COUNT 4.85 x10e6/uL (3.6-5.1); RED CELL DISTRIBUTION WIDTH 14.4 % (11.7-14.4)
[2019-10-03 09:59] LABS: ALANINE AMINOTRANSFERASE 54 IU/L (0-55); ALBUMIN 4.1 g/dL (3.5-5.0); ALBUMIN/GLOBULIN RATIO 0.9 (0.8-2.0); ALKALINE PHOSPHATASE 77 IU/L (40-150); ANION GAP 9.7 mmol/L (8-16); BLOOD UREA NITROGEN 13 mg/dL (7-26); BUN/CREATININE RATIO 16 (6-25); CALCIUM 9.4 mg/dL (8.4-10.2); CARBON DIOXIDE 28 mmol/L (22-29); CHLORIDE 103 mmol/L (98-107); CREATININE, SERUM 0.81 mg/dL (0.57-1.11); EST GLOMERULAR FILTRATION RATE > 60 ML/MIN (60-); GLUCOSE 107 mg/dL (74-118); POTASSIUM 3.7 mmol/L (3.5-5.1); SODIUM 137 mmol/L (136-145)
[2019-10-03 12:35] VITALS: BP 128/84
--- NOTE | 2019-10-03 17:38 | Operative Report ---
DATE OF PROCEDURE: 10/03/2019 SURGEON: Leland Schultz MD PREOPERATIVE DIAGNOSES: Cholecystitis and cholelithiasis. POSTOPERATIVE DIAGNOSES: Cholecystitis and cholelithiasis. OPERATION PERFORMED: Laparoscopic cholecystectomy. BULL RIDER: ANDERSON Rodriguez. ANESTHESIA: General endotracheal. COMPLICATIONS: None. ESTIMATED BLOOD LOSS: Minimal. DESCRIPTION OF PROCEDURE: With the patient lying in bed in the supine position under good general endotracheal anesthesia, the abdomen was prepped with Betadine solution and draped in the usual manner. A Veress needle was introduced into the umbilicus and pneumoperitoneum was established without any difficulty. An 11 mm trocar was placed into the umbilicus and a 10 mm video laparoscope was placed into the intra-abdominal cavity. Under direct vision, three 5 mm trocars were placed in the right subcostal region. Video laparoscopy at this point revealed a thick-walled chronically inflamed fibrotic gallbladder that contained multiple stones. The rest of the abdominal exploration was within normal limits. The peritoneum overlying the neck of the gallbladder was then opened and the cystic duct was identified. The cystic duct was then followed to its junction with the common duct. The cystic duct was then circumferentially dissected. It became evident at this point that there was a lot of thickening of the cystic duct, so we decided to go ahead and tie it with an Endoloop rather than clips. The cystic duct was then divided and ligated with 0 PDS Endoloop plus also a clip. The cystic artery was similarly doubly clipped and divided. The gallbladder was then slowly and carefully taken off the liver bed using the cautery scissors. There was a lot of fibrosis of the liver bed from the chronic inflammatory process. The gallbladder was also partially intrahepatic. Gallbladder was nonetheless totally taken off the liver bed and placed in a pouch and removed through the umbilicus. After this was done, the abdomen was then copiously irrigated. Perfect hemostasis was ascertained. All the excess fluid was aspirated. The pneumoperitoneum was evacuated and all the trocars were removed under direct vision. The midline fascia at the umbilicus was then closed with 2 [id number] of 0 Vicryl. All layers were infiltrated on the way out with solution of 0.25% Marcaine. Subcutaneous tissue was approximated with 3-0 Vicryl and the skin was closed with subcuticular 5-0 Vicryl. Benzoin, Steri-Strips, and Band-Aids were applied. The sponge, lap, and needle count was correct. The patient tolerated the procedure well and returned to the recovery room in stable condition. MD HENRY Islas/ARTURO /[id number]
== END | disposition home or self-care (01) ==
LOC: OR 07:20
PROVIDERS: ATTEND Surgery
DX: K80.10 Calculus of gallbladder with chronic cholecystitis without obstruction (principal); Z01.812 Encounter for preprocedural laboratory examination; Z88.8 Allergy status to other drugs, medicaments and biological substances; E03.9 Hypothyroidism, unspecified
CPT/HCPCS: 36415; 47562; 80053; 81003; 81025; 85025; 88304; C1766; J1100; J1885; J2001; J2250; J2405; J2704; J2710; J3010